=== PATIENT | female | born 1995 | race Caucasian/White ===

== ENCOUNTER → 2017-11-18 15:04 | Outpatient (CLI) | payer MEDICAID, SELFPAY ==
--- NOTE | 2017-11-18 15:14 | XR_ITS ---
XR hand LT min 3V COMPARISON: None HISTORY: Left hand pain TECHNIQUE: AP lateral and oblique views FINDINGS: There is no fracture or dislocation. The soft tissues are normal. IMPRESSION: Negative left hand
--- NOTE | 2017-11-18 15:14 | XR_ITS ---
XR shoulder LT min 2V COMPARISON: None HISTORY: Left shoulder pain TECHNIQUE: 3 views left shoulder FINDINGS: The clavicle is intact and the AC joint appears normal. The humeral head and glenoid are normal and there are no soft tissue calcifications. IMPRESSION: Negative left shoulder
== END ==
PROVIDERS: PCP Nurse Practitioner Family; Visit Provider Nurse Practitioner Family
DX: M25.512 Pain in left shoulder (principal); M79.642 Pain in left hand
CPT/HCPCS: 73030; 73130

== ENCOUNTER → 2020-01-17 13:00 | Outpatient (CLI) | payer OTHER, SELFPAY ==
--- NOTE | 2020-01-17 13:07 | MR_ITS ---
PROCEDURE: MR SHOULDER LT WO CON CLINICAL INDICATION: ROTATOR CUFF SYNDROME Left shoulder pain and tingling COMPARISON: SHOULDCMLT XR shoulder LT min 2V from 11/18/2017 TECHNIQUE: Routine multiplanar multi echo sequences are performed without gadolinium enhancement. FINDINGS: There is mild subacromial stenosis of less than 5 mm. There is no evidence tear of the supraspinatus or infraspinatus tendon the subscapularis and teres minor tendons also appear intact. Bicipital tendon is in place. No significant arthritic changes. The labral have an unremarkable appearance. No bone marrow edema apparent. No shoulder joint effusion or significant degenerative change IMPRESSION: Negative MRI of the left shoulder Dictated by: Hussein Henderson MD 01/19/2020 08:04 Electronically signed by Hussein Henderson MD in [place] 01/19/2020 08:04
== END ==
PROVIDERS: PCP Nurse Practitioner; Visit Provider Nurse Practitioner
DX: M75.102 Unspecified rotator cuff tear or rupture of left shoulder, not specified as traumatic (principal)
CPT/HCPCS: 73221

== ENCOUNTER 2020-04-27 20:37 | Emergency (ER) | payer OTHER, SELFPAY ==
[2020-04-27 20:48] VITALS: BP 137/80; PULSE 94; RESP 17; TEMP 36.6; O2SAT 99; BMI 36.6
--- NOTE | 2020-04-27 20:52 | XR_ITS ---
PROCEDURE: XR ANKLE LT MIN 3V CLINICAL INDICATION: STEPPED IN HOLE Pain COMPARISON: CR ANKL3 ANKLE-LT-3 VIEWS from 05/04/2015 CR ANKL3 ANKLE-LT-3 VIEWS from 06/16/2015 FINDINGS: A small calcific density is present at the anterior aspect of the ankle joint and may be due to an old avulsion fracture. This is not significantly changed. Mild soft tissue swelling noted laterally. There is also some minimal calcification along the mid aspect of the talus anteriorly may be due to old injury. The joint spaces are well-preserved. No significant degenerative/arthritic changes. No erosive changes evident. Other findings:None. IMPRESSION: As above, no acute fracture. Mild soft tissue swelling. Dictated by: Hussein Henderson MD 04/28/2020 05:34 Hussein Henderson MD in [place] 04/28/2020 05:34
--- NOTE | 2020-04-27 20:53 | HMH.EDLOEX ---
ED Disposition Clinical Impression: Ankle sprain and strain Disposition: Home, Self-Care Condition on Discharge: Good Instructions: DI for Ankle Sprain Additional Instructions: ice and use nsaif and call pcp and podiatry for follow up Referrals: Salazar Parks MD [Primary Care Provider] - Violeta Martinez DPM [Staff Physician] - - Critical Care Critical Care Time: No Attestation: On 04/27/20, the high probability of a clinically significant, sudden or life threatening deterioration of the following system(s) required my full and direct attention, intervention and personal management. The time I documented below is in addition to time spent performing reported procedures but includes the following listed in this critical care notation. Medical Decision Making - Medical Records Medical records reviewed: Yes: I reviewed the patient's medical records. - Marquis Inquiry Pt receiving controlled substance: No Vital Signs: 04/27/20 20:48 04/27/20 21:05 Temperature 97.9 F Temperature Source Oral Pulse Rate [Right Brachial] 94 H 97 H Respiratory Rate 17 18 Blood Pressure [Right Arm] 137/80 115/68 Blood Pressure Mean [Right Arm] 99 83 Blood Pressure Source [Right Arm] Automatic Cuff Blood Pressure Position [Right Arm] Sitting 02 Sat by Pulse Oximetry 99 97 Oxygen Delivery Method Room Air Orders (Tests/Meds): ORDERS Category Date Time Status Ankle XR - Left minimum 3 Views [XR ankle LT min 3V] Exams 04/27/20 20:52 Taken Stat - Radiology Data #1 Image(s): Ankle Image Reviewed: Yes I reviewed the patient's radiology image Preliminary Findings: No Fracture Seen Lower Extremity Injury HPI - General Chief Complaint: Extremity Injury, Lower Stated Complaint: AO [id number] fell Hardes injured L ankle Time Seen by Provider: 04/27/20 20:50 Mode of Arrival: Ambulatory Source of Information: Patient, Medical Record Limitations: No Limitations Description of Symptoms (Recalled from ER Triage Doc. by RN): PATIENT REPORTS SHE WAS WALKING TO [employer] AND STEPPED IN A HOLE IN [place] P[place] LOT AND ROLLED HER LEFT ANKLE. - History of Present Illness HPI Narrative: acute injury lt ankle tonight - stepped in hole complaint: ankle injury Onset (ago): hour(s) Injury: Left: ankle Type of Injury: hyperextension Place: street/outdoors Severity: moderate Context: walking Associated symptoms: snap/pop sensation Other symptoms: none - Related Data Allergies Allergy/AdvReac Type Severity Reaction Status Date / Time CEPHALOSPORIN Allergy Intermediate Uncoded 07/19/17 14:08 [facility] History - Hepatitis A Screen Drug use history?: No High risk sexual behaviors?: No History of sexually transmitted infection?: No Currently employed?: No Childcare worker?: No Do you have indoor plumbing?: Yes Do you have electricity?: Yes Attestation statement:: This patient has been screened for Hepatitis A risk factors. I have reviewed the patient's past medical history: Yes ROS Obtained: Yes All systems reviewed & no additional complaints - Constitutional Constitutional: Denies fever(s) - Eyes Eyes: Denies change in vision - ENT Ears, Nose, Mouth, and Throat: Denies sore throat - Cardiovascular Cardiovascular: Denies chest pain - Respiratory Respiratory: No cough - Gastrointestinal Gastrointestingal: Denies: abdominal pain - Genitourinary Male Genitourinary: Denies hematuria - Musculoskeletal Musculoskeletal: Reports as per HPI, Reports joint pain, Reports joint swelling, Reports limited range of motion - Integumentary/Breasts Skin/Breast: Denies rash - Neurologic Neurologic: Denies seizure-like activity Physical Exam - General General appearance: alert, obese - Head Head exam: normocephalic - Eye Eye exam: Present: PERRL, EOMI - ENT ENT exam: Present: mucous membranes moist - Neck Neck exam: Present: trachea midline - Respiratory Respiratory exam: Abs
[2020-04-27 21:05] VITALS: BP 115/68; PULSE 97; RESP 18; O2SAT 97
[2020-04-27 21:50] VITALS: BP 131/71; PULSE 73; RESP 15; TEMP 36.7; O2SAT 98
== END 2020-04-27 21:53 | disposition home or self-care (01) ==
PROVIDERS: Emergency Provider Emergency Medicine; PCP Family Medicine
DX: S93.402A Sprain of unspecified ligament of left ankle, initial encounter (principal); W17.2XXA Fall into hole, initial encounter; Y92.89 Other specified places as the place of occurrence of the external cause
CPT/HCPCS: 73610; 99283

== ENCOUNTER → 2021-08-10 07:54 | Outpatient (CLI) | payer OTHER, SELFPAY ==
--- NOTE | 2021-08-10 07:56 | US_ITS ---
FINAL REPORT CLINICAL HISTORY: RUQ PAIN,HYPERTRIGLYCERIDEMIA FINDINGS: Sonographic images of the right upper quadrant were obtained. The pancreas is partially obscured. The liver is fatty infiltrated. There is a small amount of sludge in the gallbladder. There is no evidence of biliary ductal dilatation.The common duct measures 2 mm. Limited images of the right kidney are unremarkable. IMPRESSION: Fatty liver. There is a small amount of sludge in the gallbladder. Reviewed, Interpreted and Dictated by Red Arellano III, MD Transcribed by Zamzam Velez Authenticated by Red Arellano III, MD on 08/10/2021 10:29:39 AM [facility]
== END ==
PROVIDERS: PCP Family Medicine; Visit Provider Family Medicine
DX: R10.11 Right upper quadrant pain (principal); E78.1 Pure hyperglyceridemia; E66.9 Obesity, unspecified
CPT/HCPCS: 76705

== ENCOUNTER → 2021-08-20 10:26 | Outpatient (CLI) | payer OTHER, SELFPAY ==
--- NOTE | 2021-08-20 10:30 | NM_ITS ---
FINAL REPORT TECHNIQUE: Sequential anterior projection images of the abdomen were obtained after the intravenous injection of 8.01 mCi technetium 99 Choletec. CLINICAL HISTORY: RUQ PAIN 10:40 am 8.01 mci Tc choletec injcted into left antecubital and imaged for 1 hour after injection pt drank ensure and then imaged a hour after drinking pt had no pain after drinking cck FINDINGS: There is normal uptake of the radiotracer by the liver. The gallbladder and bowel are visualized by 60 minutes. After 60 minutes, the patient ingested ensure for calculation of gallbladder ejection fraction. Gallbladder ejection fraction is 50% which is within normal limits. IMPRESSION: No evidence of cystic duct or bile duct obstruction. Normal gallbladder ejection fraction of 50%. Reviewed, Interpreted and Dictated by Red Arellano III, MD Transcribed by Evie Soriano Authenticated by Red Arellano III, MD on 08/20/2021 01:59:50 PM [facility]
== END ==
PROVIDERS: PCP Family Medicine; Visit Provider Family Medicine
DX: R10.11 Right upper quadrant pain (principal)
CPT/HCPCS: 78227; A9537

== ENCOUNTER 2021-09-03 09:16 | Emergency (ER) | payer OTHER, SELFPAY ==
[2021-09-03 10:51] VITALS: BP 124/84; PULSE 81; RESP 18; TEMP 36.8; O2SAT 97; BMI 37.2
--- NOTE | 2021-09-03 11:01 | HMH.EDUTC ---
[facility] [place] Disposition Clinical Impression: COVID-19 Disposition: Home, Self-Care Condition on Discharge: Good Instructions: Contact Dermatitis, DI for Contact Dermatitis, DI for General Allergic Reactions Additional Instructions: Try to avoid contact with the offending substance. Don't start the oral steroids until tomorrow. Follow up with your regular doctor. GO TO THE ER FOR ANY WORSENING SYMPTOMS OR CONCERNS Prescriptions: diphenhydrAMINE HCL [Diphenhydramine HCl] 25 mg PO Q6HP PRN #30 cap PRN Reason: Itching Transmission Status: [facility] methylPREDNISolone [Medrol] 4 mg PO DIRECTED 6 Days #21 packet Transmission Status: [facility] Referrals: Salazar Parks MD [Primary Care Provider] - Time of Disposition: 12:23 Medical Decision Making - Medical Records Medical records reviewed: No: I reviewed the patient's medical records. - Marquis Inquiry Pt receiving controlled substance: No Vital Signs: 09/03/21 10:51 09/03/21 12:34 Temperature 98.2 F 98.2 F Temperature Source Oral Pulse Rate 81 Pulse Rate [Left] 81 Respiratory Rate 18 18 Blood Pressure 124/84 Blood Pressure [Right Arm] 124/84 Blood Pressure Mean [Right Arm] 97 02 Sat by Pulse Oximetry 97 - Lab Data Lab results reviewed: Yes: I reviewed the patient's lab results. Lab Results 09/03/21 11:33: Group A Strep Rapid Negative Orders (Tests/Meds): ED MEDICATIONS Discontinued Medications Generic Name Dose Route Start Last Admin Trade Name Freq PRN Reason Stop Dose Admin Methylprednisolone Sodium Succinate 125 mg 09/03/21 12:07 09/03/21 12:22 Methylprednisolone Sod Succ 125mg Vial IM 09/03/21 12:08 125 mg ONCE ONE Administration ORDERS Category Date Time Status Strep Screen Confirmation Stat Micro 09/03/21 11:33 Received [facility] [place] HPI - General Stated complaint: rash, bilateral ear pain Time Seen by Provider: 09/03/21 11:01 Mode of Arrival: Ambulatory Source of Information: Patient Limitations: No Limitations Description of Symptoms (Recalled from Triage Doc. by RN): pt c/o a rash on her face, ears, and arms x2 days. HEENT Symptoms (Recalled from RN notes): No Resp Symptoms (Recalled from RN notes): No Skin Symptoms (Recalled from RN notes): Yes MS Symptoms (Recalled from RN notes): No Functional Status (Recalled from RN notes): wnl - History of Present Illness Provider Complaint: She states that she has had a rash on her arms, back and neck for the past 2 days. She also has had bilateral ear pressure and she has felt bad. She denies any fever or chills. - Related Data Previous Rx's Medication Instructions Recorded diphenhydrAMINE HCL 25 mg PO Q6HP PRN #30 cap 09/03/21 [Diphenhydramine HCl] methylPREDNISolone [Medrol] 4 mg PO DIRECTED 6 Days #21 09/03/21 packet Allergies Allergy/AdvReac Type Severity Reaction Status Date / Time lemon Allergy Verified 09/03/21 10:56 CEPHALOSPORIN Allergy Intermediate Uncoded 07/19/17 14:08 - Worker's Comp Is this a Worker's Comp case?: No [facility] History - Hepatitis A Screen Drug use history?: No High risk sexual behaviors?: No History of sexually transmitted infection?: No Currently employed?: No Childcare worker?: No Do you have indoor plumbing?: Yes Do you have electricity?: Yes Attestation statement:: This patient has been screened for Hepatitis A risk factors. I have reviewed the patient's past medical history: Yes - Social History Alcohol Intake: never Occupational Status: employed ROS Obtained: Yes All systems reviewed & no additional complaints - Constitutional Constitutional: Denies chills, Denies fever(s) - Eyes Eyes: Denies eye discharge - ENT Ears, Nose, Mouth, and Throat: Denies dizziness, Denies otalgia, Denies sore throat - Cardiovascular Cardiovascular: Denies chest pain - Respiratory Respiratory: Denies chest congestion,
[2021-09-03 12:02] LABS: Strep Scrn Group A (Rapid) Negative (Negative)
[2021-09-03 12:34] VITALS: BP 124/84; PULSE 81; RESP 18; TEMP 36.8
== END 2021-09-03 12:35 | disposition home or self-care (01) ==
PROVIDERS: Emergency Provider Nurse Practitioner Family; PCP Family Medicine
DX: U07.1 COVID-19 (principal)
CPT/HCPCS: 87430; 96372; 99202; C9803; G0463; U0003; U0005

== ENCOUNTER 2021-12-17 15:55 | Emergency (ER) | payer OTHER, SELFPAY ==
--- NOTE | 2021-12-17 16:04 | XR_ITS ---
PROCEDURE INFORMATION: Exam: XR Right Hand Exam date and time: 12/17/2021 4:11 PM Age: 26 years old Clinical indication: Pain; Finger(s); Right; Additional info: Injury to index finger TECHNIQUE: Imaging protocol: XR Right hand. Views: 3 or more views. COMPARISON: No relevant prior studies available. FINDINGS: Bones/joints: Normal. Soft tissues: Normal. IMPRESSION: No acute findings.
[2021-12-17 16:18] VITALS: BP 130/70; PULSE 77; RESP 18; TEMP 36.8; O2SAT 100; BMI 36.0
--- NOTE | 2021-12-17 16:52 | HMH.EDUTC ---
[facility] [place] Clinical Impression: Finger contusion Qualifiers: Encounter type: initial encounter Finger: index finger Damage to nail status: without damage Laterality: right Qualified Code(s): S60.021A - Contusion of right index finger without damage to nail, initial encounter Disposition: Home, Self-Care Condition on Discharge: Good Instructions: DI for Finger Sprain, Contusion Additional Instructions: Ice to area 15 min every couple hours may help with swelling and pain Soaking finger in warm water and epson salt may help with stiffness and pain Return if needed Over the counter Motrin and/or Tylenol may help with pain Referrals: Desire Fuller APRN [Primary Care Provider] - As needed Time of Disposition: 16:57 Medical Decision Making - Marquis Inquiry Pt receiving controlled substance: No Marquis was queried for this patient: No Vital Signs: 12/17/21 16:18 Temperature 98.3 F Temperature Source Oral Pulse Rate [Left] 77 Respiratory Rate 18 Blood Pressure [Right Arm] 130/70 Blood Pressure Mean [Right Arm] 90 02 Sat by Pulse Oximetry 100 - Radiology Data #1 Image(s): Hand Image Reviewed: Yes I have reviewed radiologist's interpretation IMPRESSION: No acute findings. [facility] [place] HPI - General Stated complaint: AO05/12 Right index finger injury Time Seen by Provider: 12/17/21 16:52 Mode of Arrival: Ambulatory Source of Information: Patient Limitations: No Limitations Description of Symptoms (Recalled from Triage Doc. by RN): pt states she hit her R index finger on a wall 1wk ago. pt states it is still hurting. HEENT Symptoms (Recalled from RN notes): No Resp Symptoms (Recalled from RN notes): No Skin Symptoms (Recalled from RN notes): No MS Symptoms (Recalled from RN notes): Yes Functional Status (Recalled from RN notes): wnl - History of Present Illness Provider Complaint: Patient states she accidently hit her hand against the wall in her bathroom about a week ago States that since then she has had pain in her right index finger that is worse when she tries to bend it or move it certain ways States that today she was coming in with a friend and wanted to get it checked out - Related Data Previous Rx's Medication Instructions Recorded diphenhydrAMINE HCL 25 mg PO Q6HP PRN #30 cap 09/03/21 [Diphenhydramine HCl] methylPREDNISolone [Medrol] 4 mg PO DIRECTED 6 Days #21 09/03/21 packet Allergies Allergy/AdvReac Type Severity Reaction Status Date / Time lemon Allergy Verified 09/03/21 10:56 CEPHALOSPORIN Allergy Intermediate Uncoded 07/19/17 14:08 - Worker's Comp Is this a Worker's Comp case?: No [facility] History - Hepatitis A Screen Attestation statement:: This patient has been screened for Hepatitis A risk factors. I have reviewed the patient's past medical history: Yes - Social History Alcohol Intake: never Occupational Status: employed ROS Obtained: Yes All systems reviewed & no additional complaints, Yes Systems reviewed as appropriate & no additional complaints - Constitutional Constitutional: Reports system reviewed and no additional complaints, except as docu, Denies body ache, Denies chills, Denies fever(s) - ENT Ears, Nose, Mouth, and Throat: Reports system reviewed and no additional complaints, except as docu - Cardiovascular Cardiovascular: Reports system reviewed and no additional complaints, except as docu - Respiratory Respiratory: Reports system reviewed and no additional complaints, except as docu - Gastrointestinal Gastrointestingal: Reports: system reviewed and no additional complaints, except as docu - Allergic/Immunologic Comments: Pain in right index finger after hitting it on wall 1 week ago Physical Exam - General General appearance: alert, in no apparent distress - Respiratory Respiratory exam: Present: normal lung sounds bilaterally. Absent: respiratory distress - Cardiovascular Cardiovascular exam: Present: regul
[2021-12-17 17:00] VITALS: BP 130/70; PULSE 77; RESP 18; TEMP 36.8
== END 2021-12-17 17:09 | disposition home or self-care (01) ==
PROVIDERS: Emergency Provider Nurse Practitioner; PCP Nurse Practitioner Family
DX: S60.021A Contusion of right index finger without damage to nail, initial encounter (principal); Z79.52 Long term (current) use of systemic steroids; Z88.1 Allergy status to other antibiotic agents; Z88.3 Allergy status to other anti-infective agents; Z91.018 Allergy to other foods
CPT/HCPCS: 73130; 99213; G0463

== ENCOUNTER 2022-01-03 16:44 | Emergency (ER) | payer OTHER, SELFPAY ==
[2022-01-03 17:00] VITALS: BP 142/83; PULSE 88; RESP 17; TEMP 36.8; O2SAT 95; BMI 37.0
--- NOTE | 2022-01-03 17:16 | HMH.EDUTC ---
[facility] [place] Disposition Clinical Impression: Poison carmen Disposition: Home, Self-Care Condition on Discharge: Good Instructions: Poison Carmen, Poison [place], Poison [place], DI for Poison Carmen Allergy, Methylprednisolone Additional Instructions: Cool compress may help with itching and irritation Over the counter Benadryl may help with itching Oatmeal bathes may help to dry up rash Start oral steriods tomorrow Return if needed Straight to ER if any life threatening symptoms Prescriptions: predniSONE [Prednisone 5mg Tab Dose-Pack] 5 mg PO UD DOSE PK 6 Days #21 tab Transmission Status: Received by [facility] Referrals: Desire Fuller APRN [Primary Care Provider] - As needed Time of Disposition: 17:53 Medical Decision Making - Marquis Inquiry Pt receiving controlled substance: No Marquis was queried for this patient: No Vital Signs: 01/03/22 17:00 Temperature 98.3 F Temperature Source Oral Pulse Rate [Left Radial] 88 Respiratory Rate 17 Blood Pressure [Right Arm] 142/83 H Blood Pressure Mean [Right Arm] 102 02 Sat by Pulse Oximetry 95 Orders (Tests/Meds): ED MEDICATIONS Discontinued Medications Generic Name Dose Route Start Last Admin Trade Name Freq PRN Reason Stop Dose Admin Methylprednisolone Sodium Succinate 125 mg 01/03/22 17:20 01/03/22 17:30 Methylprednisolone Sod Succ 125mg Vial IM 01/03/22 17:21 125 mg ONCE ONE Administration Medical Decision Narrative: Patient denies states that she just got off her period 2 days ago [facility] [place] HPI - General Stated complaint: rash on arms Time Seen by Provider: 01/03/22 17:16 Source of Information: Patient Description of Symptoms (Recalled from Triage Doc. by RN): patient comes in today because of a rash. patient thinks it may be poision carmen or oak. patient states it began last week. HEENT Symptoms (Recalled from RN notes): No Resp Symptoms (Recalled from RN notes): No Skin Symptoms (Recalled from RN notes): Yes MS Symptoms (Recalled from RN notes): No Functional Status (Recalled from RN notes): wnl - History of Present Illness Provider Complaint: Patient states that she noticed rash on both her arms last week and it has continued to spread States that it has moved all over both arms and on her neck States that she is worried that it may be moveing to her face so she came in States that she thinks it may be poison carmen - Related Data Previous Rx's Medication Instructions Recorded diphenhydrAMINE HCL 25 mg PO Q6HP PRN #30 cap 09/03/21 [Diphenhydramine HCl] methylPREDNISolone [Medrol] 4 mg PO DIRECTED 6 Days #21 09/03/21 packet predniSONE [Prednisone 5mg Tab 5 mg PO UD DOSE PK 6 Days #21 tab 01/03/22 Dose-Pack] Allergies Allergy/AdvReac Type Severity Reaction Status Date / Time lemon Allergy Verified 09/03/21 10:56 CEPHALOSPORIN Allergy Intermediate Uncoded 07/19/17 14:08 - Worker's Comp Is this a Worker's Comp case?: No [facility] History - Hepatitis A Screen Attestation statement:: This patient has been screened for Hepatitis A risk factors. I have reviewed the patient's past medical history: Yes - Social History Alcohol Intake: never Occupational Status: employed ROS Obtained: Yes All systems reviewed & no additional complaints, Yes Systems reviewed as appropriate & no additional complaints - Constitutional Constitutional: Reports system reviewed and no additional complaints, except as docu, Denies body ache, Denies chills, Denies fever(s) - ENT Ears, Nose, Mouth, and Throat: Reports system reviewed and no additional complaints, except as docu - Cardiovascular Cardiovascular: Reports system reviewed and no additional complaints, except as docu - Respiratory Respiratory: Reports system reviewed and no additional complaints, except as docu - Gastrointestinal Gastrointestingal: Reports: system reviewed and no additional complaints, except as docu - Integumentary/Breasts Skin/Br
[2022-01-03 17:44] VITALS: BP 142/83; PULSE 88; RESP 17; TEMP 36.8
== END 2022-01-03 17:54 | disposition home or self-care (01) ==
PROVIDERS: Emergency Provider Nurse Practitioner; PCP Nurse Practitioner Family
DX: L23.7 Allergic contact dermatitis due to plants, except food (principal)
CPT/HCPCS: 99212; G0463

== ENCOUNTER → 2022-02-25 09:06 | Outpatient (CLI) | payer OTHER, SELFPAY ==
[2022-02-28 18:08] LABS: QuantiFERON-TB Gold Plus Negative (Negative)
== END ==
PROVIDERS: Visit Provider Nurse Practitioner Family
DX: Z11.1 Encounter for screening for respiratory tuberculosis (principal)
CPT/HCPCS: 36415; 86480

== ENCOUNTER 2022-02-28 18:19 | Emergency (ER) | payer OTHER, SELFPAY ==
[2022-02-28 18:45] VITALS: BP 141/82; PULSE 107; RESP 18; TEMP 37.2; O2SAT 96; BMI 37.3
--- NOTE | 2022-02-28 19:02 | HMH.EDUTC ---
[facility] [place] Disposition Clinical Impression: Otitis media Qualifiers: Otitis media type: suppurative Chronicity: acute Laterality: bilateral Recurrence: non-recurrent Spontaneous tympanic membrane rupture: without spontaneous rupture Qualified Code(s): H66.003 - Acute suppurative otitis media without spontaneous rupture of ear drum, bilateral Sinusitis Qualifiers: Sinusitis location: unspecified location Chronicity: acute Recurrence: non-recurrent Qualified Code(s): J01.90 - Acute sinusitis, unspecified Disposition: Home, Self-Care Condition on Discharge: Good Instructions: Middle Ear Infection, DI for Sinusitis, Preventing the Spread of Coronavirus Discharge Instructions Additional Instructions: Drink plenty of fluids. Take tylenol or ibuprofen for pain or fever. Take the medications as directed. Follow up with your regular doctor. GO TO THE ER FOR ANY WORSENING SYMPTOMS Quarantine until you know the results of your covid-19 test. Notify your school or workplace of your results and follow their instructions regarding return to work/school. Prescriptions: Brompheniramine/Pseudoephed/Dm [Bromfed Dm Cough Syrup] 5 ml PO Q6HP PRN #240 ml PRN Reason: Cough Transmission Status: Received by [facility] Amoxicillin [Amoxicillin 875MG Tab] 875 mg PO Q12H #20 tab Transmission Status: Received by [facility] methylPREDNISolone [Medrol] 4 mg PO DIRECTED 6 Days #21 packet Transmission Status: Received by [facility] Referrals: Desire Fuller APRN [Primary Care Provider] - Forms: Work/School Release Time of Disposition: 19:05 Medical Decision Making - Medical Records Medical records reviewed: No: I reviewed the patient's medical records. - Marquis Inquiry Pt receiving controlled substance: No Vital Signs: 02/28/22 18:45 Temperature 99.0 F Temperature Source Oral Pulse Rate [Left] 107 H Respiratory Rate 18 Blood Pressure [Right Arm] 141/82 H Blood Pressure Mean [Right Arm] 101 02 Sat by Pulse Oximetry 96 Orders (Tests/Meds): ORDERS Category Date Time Status Covid-19 Nasal PCR ([facility]) Routine Lab 02/28/22 19:04 Ordered [facility] [place] HPI - General Stated complaint: fever,cough ears Time Seen by Provider: 02/28/22 19:02 Mode of Arrival: Ambulatory Source of Information: Patient Limitations: No Limitations Description of Symptoms (Recalled from Triage Doc. by RN): patient comes in with complaints of fever, cough, drainage from ear. symptoms began tuesday. HEENT Symptoms (Recalled from RN notes): No Resp Symptoms (Recalled from RN notes): Yes Skin Symptoms (Recalled from RN notes): Yes MS Symptoms (Recalled from RN notes): No Functional Status (Recalled from RN notes): n/a - History of Present Illness Provider Complaint: She states that for the past 1 week she has had bilateral ear pain, sinus congestion, and a sore throat. - Related Data Previous Rx's Medication Instructions Recorded diphenhydrAMINE HCL 25 mg PO Q6HP PRN #30 cap 09/03/21 [Diphenhydramine HCl] methylPREDNISolone [Medrol] 4 mg PO DIRECTED 6 Days #21 09/03/21 packet predniSONE [Prednisone 5mg Tab 5 mg PO UD DOSE PK 6 Days #21 tab 01/03/22 Dose-Pack] Amoxicillin [Amoxicillin 875MG 875 mg PO Q12H #20 tab 02/28/22 Tab] Brompheniramine/Pseudoephed/Dm 5 ml PO Q6HP PRN #240 ml 02/28/22 [Bromfed Dm Cough Syrup] methylPREDNISolone [Medrol] 4 mg PO DIRECTED 6 Days #21 02/28/22 packet Allergies Allergy/AdvReac Type Severity Reaction Status Date / Time lemon Allergy Verified 02/28/22 18:48 CEPHALOSPORIN Allergy Intermediate Uncoded 07/19/17 14:08 - Worker's Comp Is this a Worker's Comp case?: No [facility] History - Hepatitis A Screen Attestation statement:: This patient has been screened for Hepatitis A risk factors. I have reviewed the patient's past medical history: Yes - Social History Alcohol Intake: never Occupational Status
[2022-02-28 19:12] VITALS: BP 141/82; PULSE 107; RESP 18; TEMP 37.2
== END 2022-02-28 19:14 | disposition home or self-care (01) ==
PROVIDERS: Emergency Provider Nurse Practitioner Family; PCP Nurse Practitioner Family
DX: H66.003 Acute suppurative otitis media without spontaneous rupture of ear drum, bilateral (principal); J01.90 Acute sinusitis, unspecified
CPT/HCPCS: 99212; G0463

== ENCOUNTER 2022-06-11 17:44 | Emergency (ER) | payer OTHER, SELFPAY ==
[2022-06-11 19:30] VITALS: BP 136/81; PULSE 90; RESP 19; TEMP 36.7; O2SAT 98; BMI 34.2
[2022-06-11 19:41] LABS: UTC Influenza A Antigen Negative (Negative)
[2022-06-11 19:42] LABS: UTC Influenza B Antigen Negative (Negative)
[2022-06-11 19:51] VITALS: BP 136/81; PULSE 90; RESP 19; TEMP 36.7; O2SAT 98
--- NOTE | 2022-06-11 19:53 | EXP.UTC ---
Discharge Plan Disposition Patient Disposition: Home, Self-Care Condition: Good Prescriptions Prescriptions: New methylprednisolone [Medrol (Yoel)] 4 mg tablets,dose pack See Rx Instructions .Route .COMPLEX 6 Days Qty: 21 0RF Rx Instructions: taper pack; amoxicillin-pot clavulanate 875-125 mg Tablet 1 tab PO Q12H Qty: 20 0RF Referrals Follow up/Referrals: Desire Fuller APRN [Primary Care Provider] - See instructions Activity Restrictions/Add. Instructions Additional Instructions/Restrictions: *Monitor Temp, Over the counter Motrin or Tylenol as directed/as needed Tylenol every 4 hours and Motrin every 6 hours (as long as your family doctor has told you that you can take it) for fever or pain. and straight to ER if unable to lower temp less than 101.0 after medication given *Warm salt water gargles may help to soothe the throat *Throat Lozenges? *Warm fluids like tea with honey may help to soothe the throat? *Sleep elevated *Humidifier/Vaporizer Take medication as prescribed Follow up IMMEDIATELY for new or worsening symptoms or no Noticeable improvement over the next 48-72 hours. 911 for difficulty breathing or swallowing Clinical Impressions Clinical Impression: Otitis media Qualifiers: Otitis media type: unspecified Laterality: right Qualified Code(s): H66.91 - Otitis media, unspecified, right ear Instructions Patient Instructions: Middle Ear Infection, Amoxicillin and Clavulanic Acid Discharge ED Provider: Anne-Marie Sood [facility] General Stated complaint: sore throat ears Mode of Arrival: Ambulatory Source of Information: Patient Limitations: No Limitations Time Seen by Provider: 06/11/22 19:53 Description of Symptoms (Recalled from Triage Doc. by RN): PATIENT C/O BILATERAL EAR PAIN AND DRAINAGE X 3 DAYS HEENT Symptoms (Recalled from RN notes): Yes Resp Symptoms (Recalled from RN notes): No Skin Symptoms (Recalled from RN notes): No MS Symptoms (Recalled from RN notes): No Functional Status (Recalled from RN notes): WNL History of Present Illness Provider Complaint: Patient states that she has been having bilateral ear pain and nasal congestion and drainage that has got worse over the last few days States that she has also been around flu and wanted to get tested for it Related Data Previous Rx's Medication Instructions Recorded amoxicillin 875 mg-potassium 1 tab PO Q12H #20 tabs 06/11/22 clavulanate 125 mg tablet methylprednisolone 4 mg tablets in See Rx Instructions .Route 06/11/22 a dose pack (Medrol (Yoel)) .COMPLEX 6 days #21 tabs Allergies Allergy/AdvReac Type Severity Reaction Status Date / Time Cephalosporins Allergy Verified 06/11/22 19:41 lemon Allergy Verified 02/28/22 18:48 Worker's Comp Is this a Worker's Comp case?: No [facility] Medical History (Updated 06/11/22 @ 19:59 by Anne-Marie Sood APRN) Asthma Surgical History (Updated 06/11/22 @ 19:40 by Pippa Neumann RN) History of tonsillectomy History of tympanostomy tube placement Social History (Updated 06/11/22 @ 19:40 by Pippa Neumann RN) Smoking Status: Unknown if ever smoked alcohol intake: never current occupational status: employed Travel in the last 8 weeks: None ROS Obtained: Yes All systems reviewed & no additional complaints except as documented and Yes Systems reviewed as appropriate & no additional complaints except as documented Constitutional Constitutional: Reports system reviewed and no additional complaints, except as documented and Reports as per HPI ENT Ears, Nose, Mouth, and Throat: Reports system reviewed and no additional complaints, except as documented, Reports as per HPI, Reports otalgia, Reports nasal congestion and Reports nasal discharge Cardiovascular Cardiovascular: Reports system reviewed and no additional complaints, except as documented and Reports as per HPI Respiratory Respiratory: Reports system reviewed and n
== END 2022-06-11 20:02 | disposition home or self-care (01) ==
PROVIDERS: Emergency Provider Nurse Practitioner; PCP Nurse Practitioner Family
DX: H66.91 Otitis media, unspecified, right ear (principal)
CPT/HCPCS: 87804; 99212; G0463

== ENCOUNTER 2022-06-29 17:28 | Emergency (ER) | payer OTHER, SELFPAY ==
[2022-06-29 20:30] VITALS: BP 128/84; PULSE 84; RESP 18; TEMP 36.7; O2SAT 99; BMI 36.3
--- NOTE | 2022-06-29 20:43 | XR_ITS ---
PROCEDURE INFORMATION: Exam: XR Left Ankle Exam date and time: 06/29/2022 8:45 PM Age: 27 years old Clinical indication: Ankle and foot; Left; Patient HX: PT twisted ankle, pain and swelling laterally; Additional info: Fall, pain TECHNIQUE: Imaging protocol: Radiologic exam of the Left ankle. Views: 3 or more views. COMPARISON: CR XR ANKLE LT MIN 3V 04/27/2020 9:13 PM FINDINGS: Bones/joints: Calcaneus enthesophytes. No acute fracture or dislocation. Soft tissues: Soft tissue edema overlies the lateral malleolus. IMPRESSION: No acute fracture or dislocation.
--- NOTE | 2022-06-29 20:43 | XR_ITS ---
PROCEDURE INFORMATION: Exam: XR Left Foot Exam date and time: 06/29/2022 8:44 PM Age: 27 years old Clinical indication: Ankle and foot; Left; Patient HX: PT twisted ankle, pain and swelling laterally; Additional info: Fall, pain TECHNIQUE: Imaging protocol: Radiologic exam of the Left foot. Views: 3 or more views. COMPARISON: CR XR ANKLE LT MIN 3V 04/27/2020 9:13 PM FINDINGS: Bones/joints: No acute fracture or dislocation. Soft tissues: Normal. IMPRESSION: No acute fracture or dislocation.
--- NOTE | 2022-06-29 21:27 | HMH.EDLOEX ---
Discharge Plan Disposition Patient Disposition: Home, Self-Care Prescriptions Prescriptions: No Action methylprednisolone [Medrol (Yoel)] 4 mg tablets,dose pack See Rx Instructions .Route .COMPLEX 6 Days Qty: 21 0RF Rx Instructions: taper pack; amoxicillin-pot clavulanate 875-125 mg Tablet 1 tab PO Q12H Qty: 20 0RF Referrals Follow up/Referrals: Nadir Stafford JR, MD [Physician] - See instructions Desire Fuller APRN [Primary Care Provider] - See instructions Violeta Martinez DPM [Staff Physician] - See instructions Clinical Impressions Clinical Impression: Ankle sprain and strain Instructions Patient Instructions: Sprain Discharge ED Provider: Misael Bloom Lower Extremity Injury HPI General Chief Complaint: Extremity Injury, Lower Stated Complaint: AO 06/29/22 1450 Injury left ankle Time Seen by Provider: 06/29/22 21:27 Mode of Arrival: Family Vehicle Source of Information: Patient and Medical Record Limitations: No Limitations Description of Symptoms (Recalled from ER Triage Doc. by RN): Pt c/o pain to L ankle. States she was walking when her ankle gave-way and rolled then I heard a pop . States this occured at also 1450 otday. Now, the pain has worsen and swelling increased. Pt has iced it, no meds HOME HEALTH CARE PROVIDER. History of Present Illness HPI Narrative: acute eversion injury to lt ankle with pain /swelling and pain and dec wt bearing complaint: ankle injury and foot injury Onset (ago): hour(s) Injury: Left: ankle and foot Type of Injury: eversion Place: home Severity: moderate Exacerbating factors: weight bearing, movement and palpation Context: walking Associated symptoms: snap/pop sensation, swelling and able to partially bear weight Other symptoms: none Treatments prior to arrival: cold therapy Related Data Previous Rx's Medication Instructions Recorded amoxicillin 875 mg-potassium 1 tab PO Q12H #20 tabs 06/11/22 clavulanate 125 mg tablet methylprednisolone 4 mg tablets in See Rx Instructions .Route 06/11/22 a dose pack (Medrol (Yoel)) .COMPLEX 6 days #21 tabs Allergies Allergy/AdvReac Type Severity Reaction Status Date / Time Cephalosporins Allergy Verified 06/11/22 19:41 lemon Allergy Verified 02/28/22 18:48 [facility] Medical History (Updated 06/29/22 @ 21:39 by Misael Bloom MD) Asthma Surgical History (Updated 06/11/22 @ 19:40 by Pippa Neumann, RN) History of tonsillectomy History of tympanostomy tube placement Social History (Updated 06/11/22 @ 19:40 by Pippa Neumann, RN) Smoking Status: Never smoker alcohol intake: never current occupational status: employed Travel in the last 8 weeks: None ROS Obtained: Yes All systems reviewed & no additional complaints except as documented Physical Exam General General appearance: alert Head Head exam: normocephalic Eye Eye exam: Present PERRL and EOMI ENT ENT exam: Present mucous membranes moist Neck Neck exam: Absent trachea midline Respiratory Respiratory exam: Present normal lung sounds bilaterally Cardiovascular Cardiovascular exam: Present regular rate Expanded Lower Extremity Exam Left: Lower leg exam: Present normal inspection and Achilles tendon intact Ankle exam: Present tenderness and swelling; Absent full ROM Foot/toe exam: Absent tenderness, swelling or tenderness at base of 5th metatarsal Neurological Exam Neurological exam: Present alert, oriented X3 and CN II-XII intact Psychiatric Psychiatric exam: Present normal affect Skin Skin exam: Absent rash Medical Decision Making Medical Records Medical records reviewed: Yes I reviewed the patient's medical records. Marquis Inquiry Pt receiving controlled substance: No Vital Signs: 06/29/22 20:30 Temperature 98.1 F Temperature Source Oral Pulse Rate [Right] 84 Respiratory Rate 18 Blood Pressure [Right Arm] 128/84 Blood Pressure Mean [Right Arm] 98 Blood Pressure Source [Right Arm] Autom
[2022-06-29 21:48] VITALS: BP 120/78; PULSE 80; RESP 16; TEMP 36.8; O2SAT 98
== END 2022-06-29 21:49 | disposition home or self-care (01) ==
PROVIDERS: Emergency Provider Emergency Medicine; PCP Nurse Practitioner Family
DX: S93.402A Sprain of unspecified ligament of left ankle, initial encounter (principal); J45.909 Unspecified asthma, uncomplicated; Z79.52 Long term (current) use of systemic steroids
CPT/HCPCS: 73610; 73630; 99283

== ENCOUNTER 2022-07-12 17:05 | Emergency (ER) | payer OTHER, SELFPAY ==
--- NOTE | 2022-07-12 18:50 | EXP.UTC ---
Discharge Plan Disposition Patient Disposition: Home, Self-Care Condition: Good Prescriptions Prescriptions: New amoxicillin [amoxicillin] 500 mg tablet 500 mg PO TID 10 Days Qty: 30 0RF methylprednisolone 4 mg Tablets,Dose Pack 4 mg PO DIRECTED Qty: 21 0RF [id number] [Bromfed DM] 2-30-10 mg/5 mL Syrup 5 ml PO Q6H PRN (Reason: Cough) Qty: 240 0RF No Action methylprednisolone [Medrol (Yoel)] 4 mg tablets,dose pack See Rx Instructions .Route .COMPLEX 6 Days Qty: 21 0RF Rx Instructions: taper pack; amoxicillin-pot clavulanate 875-125 mg Tablet 1 tab PO Q12H Qty: 20 0RF Referrals Follow up/Referrals: Desire Fuller APRN [Primary Care Provider] - See instructions Activity Restrictions/Add. Instructions Additional Instructions/Restrictions: Drink plenty of fluids. Take tylenol or ibuprofen for pain or fever. Take the medications as directed. Follow up with your regular doctor. GO TO THE ER FOR ANY WORSENING SYMPTOMS Clinical Impressions Clinical Impression: Otitis media Instructions Patient Instructions: Middle Ear Infection Discharge ED Provider: Rjaiv Li [facility] General Stated complaint: LEFT EAR ACHE Time Seen by Provider: 07/12/22 18:50 History of Present Illness Provider Complaint: She states that for the past 5 days she has had sore throat and ear pain. Related Data Previous Rx's Medication Instructions Recorded amoxicillin 875 mg-potassium 1 tab PO Q12H #20 tabs 06/11/22 clavulanate 125 mg tablet methylprednisolone 4 mg tablets in See Rx Instructions .Route 06/11/22 a dose pack (Medrol (Yoel)) .COMPLEX 6 days #21 tabs amoxicillin 500 mg tablet 500 mg PO TID 10 days #30 tabs 07/12/22 [id number] 5 ml PO Q6H PRN Cough #240 mL 07/12/22 2 mg-30 mg-10 mg/5 mL oral syrup (Bromfed DM) methylprednisolone 4 mg tablets in 4 mg PO DIRECTED #21 tabs 07/12/22 a dose pack Allergies Allergy/AdvReac Type Severity Reaction Status Date / Time Cephalosporins Allergy Verified 07/12/22 19:00 lemon Allergy Verified 07/12/22 19:00 PFSH PFSH Disclaimer: The information contained in this section may have been updated after the patient was seen, as this information can be updated by other users. Medical History Asthma Surgical History History of tonsillectomy History of tympanostomy tube placement Social History Smoking Status: Never smoker alcohol intake: never current occupational status: employed Travel in the last 8 weeks: None ROS Obtained: Yes All systems reviewed & no additional complaints except as documented Constitutional Constitutional: Reports chills and Reports fever(s) Eyes Eyes: Denies eye discharge ENT Ears, Nose, Mouth, and Throat: Reports as per HPI Cardiovascular Cardiovascular: Denies chest pain Respiratory Respiratory: Denies chest congestion and Reports cough Gastrointestinal Gastrointestingal: Reports nausea; Denies abdominal pain, constipation, cramping, diarrhea or vomiting Musculoskeletal Musculoskeletal: Denies arthralgias Integumentary/Breasts Skin/Breast: Denies rash Neurologic Neurologic: Denies paresthesias Physical Exam General General appearance: alert and in no apparent distress Head Head exam: atraumatic, normocephalic and normal inspection Eye Eye exam: Present normal appearance; Absent PERRL or EOMI ENT ENT exam: Present mucous membranes moist and normal external ear exam Expanded ENT Exam TM/Canal exam: Bilateral TM: erythema, bulging and effusion Nose exam: Absent sinus tenderness Nasal speculum exam: Bilateral: normal Mouth exam: Present normal external inspection and other; Absent drooling Teeth exam: Present normal inspection Throat exam: Present tonsillar erythema and tonsill
[2022-07-12 18:58] VITALS: BP 116/78; PULSE 78; RESP 16; TEMP 36.7; O2SAT 100; BMI 36.3
[2022-07-12 19:39] VITALS: BP 116/78; PULSE 78; RESP 16; TEMP 36.7
== END 2022-07-12 19:45 | disposition home or self-care (01) ==
PROVIDERS: Emergency Provider Nurse Practitioner Family; PCP Nurse Practitioner Family
DX: H66.93 Otitis media, unspecified, bilateral (principal)
CPT/HCPCS: 99212; G0463

== ENCOUNTER 2022-08-31 17:08 | Emergency (ER) | payer OTHER, SELFPAY ==
[2022-08-31 17:20] VITALS: BP 129/90; PULSE 100; RESP 22; TEMP 36.7; O2SAT 96; BMI 36.1
[2022-08-31 17:31] VITALS: BP 129/90; PULSE 100; RESP 22; TEMP 36.7; O2SAT 96
--- NOTE | 2022-08-31 17:33 | EXP.UTC ---
Discharge Plan Disposition Patient Disposition: Home, Self-Care Condition: Good Prescriptions Prescriptions: New pseudoephedrine HCl [12 Hour Decongestant] 120 mg tablet extended release 120 mg PO Q12H PRN (Reason: nasal congestion) Qty: 20 0RF clarithromycin 500 mg tablet 500 mg PO Q12H 10 Days Qty: 20 0RF Referrals Follow up/Referrals: Desire Fuller APRN [Primary Care Provider] - See instructions Larry Tejada MD [Physician] - See instructions Nadir Duncan MD [Physician] - See instructions Christian Rashid III, MD [Staff Physician] - See instructions Activity Restrictions/Add. Instructions Additional Instructions/Restrictions: *Monitor Temp, Over the counter Motrin or Tylenol as directed/as needed Tylenol every 4 hours and Motrin every 6 hours (as long as your family doctor has told you that you can take it) for fever or pain. and straight to ER if unable to lower temp less than 101.0 after medication given *Warm salt water gargles may help to soothe the throat *Throat Lozenges? *Warm fluids like tea with honey may help to soothe the throat? *Sleep elevated *Humidifier/Vaporizer Your throat swab was sent for culture. Those results are typically sent to your primary care. Be sure to follow up in 2-3 days with your family doctor/primary care physician if no improvement so they can review those result and treat if necessary. If you don?t have a primary care doctor, I recommend you get one but in the mean time, you will have to return to a walk in clinic Follow up IMMEDIATELY for new or worsening symptoms or no Noticeable improvement over the next 48-72 hours. 911 for difficulty breathing or swallowing Clinical Impressions Clinical Impression: Otitis media, Strep throat Instructions Patient Instructions: Middle Ear Infection, DI for Strep Throat, Strep Throat Discharge ED Provider: Anne-Marie Sood [facility] HPI General Stated complaint: earache , runny nose Mode of Arrival: Ambulatory Source of Information: Patient Limitations: No Limitations Time Seen by Provider: 08/31/22 17:34 Description of Symptoms (Recalled from Triage Doc. by RN): PATIENT C/O BILATERAL EAR PAIN AND SINUS PRESSURE X 1 WEEK HEENT Symptoms (Recalled from RN notes): Yes Resp Symptoms (Recalled from RN notes): No Skin Symptoms (Recalled from RN notes): No MS Symptoms (Recalled from RN notes): No Functional Status (Recalled from RN notes): WNL History of Present Illness Provider Complaint: Patient states that she has been having sinus pain and pressure and bilateral ear pain for over a week State that she has had several ear infections over the last couple months States that her most recent was about 3-4 wks ago and now she is having the same symptoms again Related Data Previous Rx's Medication Instructions Recorded clarithromycin 500 mg tablet 500 mg PO Q12H 10 days #20 tabs 08/31/22 pseudoephedrine HCl 120 mg 120 mg PO Q12H PRN nasal 08/31/22 tablet,extended release (12 Hour congestion #20 tabs Decongestant ER) Allergies Allergy/AdvReac Type Severity Reaction Status Date / Time Cephalosporins Allergy Verified 07/12/22 19:00 lemon Allergy Verified 07/12/22 19:00 Worker's Comp Is this a Worker's Comp case?: No [facility] Disclaimer: The information contained in this section may have been updated after the patient was seen, as this information can be updated by other users. Medical History Asthma Surgical History History of tonsillectomy History of tympanostomy tube placement Social History (Updated 08/31/22 @ 17:30 by Pippa Neumann RN) Smoking Status: Never smoker alcohol intake: never current occupational status: employed Travel in the last 8 weeks: None ROS Obtained: Yes All systems reviewed & no additional complaints except as documented and Yes Systems r
[2022-08-31 17:42] LABS: UTC Influenza A Antigen Negative (Negative); UTC Influenza B Antigen Negative (Negative); UTC Strep Screen (Rapid) Positive (Negative)
== END 2022-08-31 17:54 | disposition home or self-care (01) ==
PROVIDERS: Emergency Provider Nurse Practitioner; PCP Nurse Practitioner Family
DX: J02.0 Streptococcal pharyngitis (principal); H66.90 Otitis media, unspecified, unspecified ear
CPT/HCPCS: 87804; 87880; 99212; 99213; G0463

== ENCOUNTER 2022-09-11 00:49 | Emergency (ER) | payer OTHER, SELFPAY ==
[2022-09-11 01:01] VITALS: BP 173/103; PULSE 86; RESP 16; TEMP 36.6; O2SAT 96; BMI 35.2
[2022-09-11 01:07] VITALS: PULSE 93; O2SAT 96
[2022-09-11 01:08] VITALS: BP 173/103; PULSE 80; O2SAT 97
--- NOTE | 2022-09-11 01:10 | HMH.EDGENADL ---
Discharge Plan Disposition Patient Disposition: Home, Self-Care Condition: Fair Prescriptions Prescriptions: New ketorolac 10 mg tablet 10 mg PO Q8H 5 Days Qty: 15 0RF tamsulosin [Flomax] 0.4 mg capsule 0.4 mg PO Q24H Qty: 14 0RF No Action pseudoephedrine HCl [12 Hour Decongestant] 120 mg tablet extended release 120 mg PO Q12H PRN (Reason: nasal congestion) Qty: 20 0RF clarithromycin 500 mg tablet 500 mg PO Q12H 10 Days Qty: 20 0RF Referrals Follow up/Referrals: Desire Fuller APRN [Primary Care Provider] - See instructions Clinical Impressions Clinical Impression: Left nephrolithiasis Instructions Patient Instructions: DI for Kidney Stones Discharge ED Provider: Dakota Mccarthy General Adult HPI General Chief complaint: Back Pain/Injury Stated complaint: Left side lower back pain,vomoting,unable to void Time Seen by Provider: 09/11/22 01:00 Mode of Arrival: Ambulatory Source of Information: Patient Limitations: No Limitations Description of Symptoms (Recalled from ER Triage Doc. by RN): Pt states that she woke up tonight at 2300 with left sided lower back pain that radiates into her left hip area. 2 episodes of vomiting. Patient states that she has also been unable to urinate since 2300. Pt denies any injury. Denies burning with urination. Does report a history of polycystic ovarian disease. History of Present Illness HPI narrative: Patient is a 27-year-old female with no pertinent past medical history who presents with back and left hip pain. She states that around 11:00 last night she got a cute onset of this pain. She states that it seems to come from her low back and radiate around into her groin. She says that this happened almost instantly and has been constant since. She describes the pain as a stabbing. She has not been able to urinate since. Denies any injuries. She states that she also feels very nauseous. She has not vomited. Related Data Previous Rx's Medication Instructions Recorded clarithromycin 500 mg tablet 500 mg PO Q12H 10 days #20 tabs 08/31/22 pseudoephedrine HCl 120 mg 120 mg PO Q12H PRN nasal 08/31/22 tablet,extended release (12 Hour congestion #20 tabs Decongestant ER) ketorolac 10 mg tablet 10 mg PO Q8H 5 days #15 tabs 09/11/22 tamsulosin 0.4 mg capsule (Flomax) 0.4 mg PO Q24H #14 caps 09/11/22 Allergies Allergy/AdvReac Type Severity Reaction Status Date / Time Cephalosporins Allergy Verified 07/12/22 19:00 lemon Allergy Verified 07/12/22 19[facility]00 [facility] Disclaimer: The information contained in this section may have been updated after the patient was seen, as this information can be updated by other users. Medical History Asthma Surgical History History of tonsillectomy History of tympanostomy tube placement Social History (Updated 08/31/22 @ 17:30 by Pippa Neumann RN) Smoking Status: Never smoker alcohol intake: never current occupational status: employed Travel in the last 8 weeks: None ROS Obtained: Yes All systems reviewed & no additional complaints except as documented Physical Exam General General appearance: alert and in no apparent distress Head Head exam: atraumatic, normocephalic and normal inspection Eye Eye exam: Present normal appearance, PERRL and EOMI ENT ENT exam: Present normal exam, normal oropharynx, mucous membranes moist and normal external ear exam Neck Neck exam: Present normal inspection, full ROM and trachea midline; Absent meningismus or lymphadenopathy Chest Chest inspection: Present normal inspection and symmetric chest wall rise; Absent tenderness Respiratory Respiratory exam: Present normal lung sounds bilaterally; Absent respiratory distress Cardiovascular Cardiovascular exam: Present regular rate and normal rhythm Abdominal Exam Abdominal exam: Present soft; Absent di
--- NOTE | 2022-09-11 01:14 | CT_ITS ---
PROCEDURE INFORMATION: Exam: CT Abdomen And Pelvis Without Contrast Exam date and time: 09/11/2022 2:04 AM Age: 27 years old Clinical indication: Abdominal pain; Flank; Left; Additional info: Concern for nephrolitiasis TECHNIQUE: Imaging protocol: Computed tomography of the abdomen and pelvis without contrast. Radiation optimization: All CT scans at this facility use at least one of these dose optimization techniques: automated exposure control; mA and/or kV adjustment per patient size (includes targeted exams where dose is matched to clinical indication); or iterative reconstruction. Other protocol: This patient has received 0 known CTs and 0 known cardiac nuclear medicine studies in the 12 months prior to the current study. COMPARISON: [facility]PAT[facility] 08/20/2021 11:50 AM FINDINGS: Liver: Normal. No mass. Gallbladder and bile ducts: Normal. No calcified stones. No ductal dilation. Pancreas: Normal. No ductal dilation. Spleen: Normal. No splenomegaly. Adrenal glands: Normal. No mass. Kidneys and ureters: On axial image 97, there is a 2 mm stone at the left ureterovesical junction. On the same image there is a 1 mm punctate density in the area of the right ureterovesical junction. There is mild left hydroureteronephrosis and perinephric edema as well as mildly edematous appearance of the left kidney. Stomach and bowel: Unremarkable. No obstruction. No mucosal thickening. Appendix: No evidence of appendicitis. Intraperitoneal space: Unremarkable. No free air. No significant fluid collection. Vasculature: Unremarkable. No abdominal aortic aneurysm. Lymph nodes: Unremarkable. No enlarged lymph nodes. Urinary bladder: Unremarkable as visualized. Reproductive: Unremarkable as visualized. Bones/joints: Unremarkable. No acute fracture. Soft tissues: Unremarkable. IMPRESSION: 1. 2 mm stone at the left UVJ producing mild left hydronephrosis and renal/perirenal edema 2. Questionable 1 mm stone at the right UVJ with no hydronephrosis or perinephric edema on the right
[2022-09-11 01:26] LABS: Basophils # 0.1 K/mm3 (0-0.2); Basophils % 0.8 % (0.1-2.0); Eosinophils # 0.2 K/mm3 (0.0-0.4); Eosinophils % 1.6 % (0.1-12.0); Hematocrit 42.2 % (37.0-47.0); Hemoglobin 13.7 g/dL (12.2-16.2); Lymphocytes # 3.2 K/mm3 (0.7-4.5); Lymphocytes % 25.8 % (10-50); Mean Corpuscular HGB Conc 32.4 g/dL (31.8-35.4); Mean Corpuscular Hemoglobin 26.3 pg (27.0-31.2); Mean Corpuscular Volume 81.3 fl (81-99); Mean Platelet Volume 7.6 fl (7.4-10.4); Monocytes # 0.4 K/mm3 (0.1-1.0); Neutrophils # 8.5 K/mm3 (1.8-7.8); Neutrophils % 68.9 % (37.0-80.0); Platelet Count 453 K/mm3 (142-424); Red Cell Distribution Width 15.6 % (11.5-17.5); White Blood Count 12.3 K/mm3 (4.8-10.8)
[2022-09-11 01:30] VITALS: BP 145/80; PULSE 80; O2SAT 96
[2022-09-11 01:30] LABS: Microscopic, Urine URINE MICROSCOPIC (MICROSCOPIC)
[2022-09-11 01:37] LABS: Alanine Aminotransferase 42 U/L (12-78); Albumin Level 4.8 g/dl (3.5-5.0); Albumin/Globulin Ratio 1.5 (1.1-1.8); Alkaline Phosphatase 111 U/L (38-126); Anion Gap 11.6 mEq/L (5-15); Aspartate Amino Transferase 42 U/L (14-36); Blood Urea Nitrogen 16 mg/dl (7-17); Carbon Dioxide 26 mmol/L (22.0-30.0); Chloride 107 mmol/L (98-107); Creatinine Clearance Estimated 123 mL/min (50-200); Estimated Glomerular Filt Rate 68 ml/min (>60); GFR (African American) 82 ML/MIN (>60); Globulin 3.3 g/dL (1.3-3.2); Glucose 146 mg/dl (74-100); Lipase 106 U/L (23-300); Potassium 3.6 mmoL/L (3.5-5.1); Sodium 141 mmol/L (136-145); Total Protein,Serum 8.1 g/dl (6.3-8.2)
[2022-09-11 01:39] LABS: Appearance,Urine SL CLOUDY (Clear); Bilirubin,Urine Negative (Negative); Blood, Urine 1+ (Negative); Color,Urine YELLOW (Yellow); Glucose,Urine (UA) Negative (Negative); Ketones,Urine Negative (Negative); Leukocyte Esterase,Urine Negative (Negative); Nitrate,Urine Negative (Negative); PH,Urine 5.5 (5.0-8.5); Protein,Urine TRACE (Negative); Specific Gravity, Urine >= 1.030 (1.005-1.030); Urobilinogen,Urine 0.2 EU/dl (0.2)
[2022-09-11 01:52] LABS: HCG Qualitative, Serum Negative (Negative)
[2022-09-11 01:57] LABS: RBC,Urine Occasional #/hpf (0-3); Squamous Epithelial Cell,Urine Occasional #/hpf (0-5)
[2022-09-11 01:58] LABS: Bilirubin,Total 0.3 mg/dl (0.2-1.3)
[2022-09-11 02:28] VITALS: BP 145/80; PULSE 80; RESP 18; TEMP 36.6; O2SAT 99
--- NOTE | 2022-09-11 13:33 | PC.NURSE ---
per pts request prescriptions sent to [facility] in [place]
== END 2022-09-11 02:52 | disposition home or self-care (01) ==
PROVIDERS: Emergency Provider Student in an Organized Health Care Education/Training Program; PCP Nurse Practitioner Family
DX: N20.0 Calculus of kidney (principal); J45.909 Unspecified asthma, uncomplicated; Z90.49 Acquired absence of other specified parts of digestive tract
CPT/HCPCS: 74176; 80053; 81001; 83690; 84703; 85025; 96361; 96374; 96375; 99285; J2405

== ENCOUNTER 2022-10-18 17:10 | Emergency (ER) | payer OTHER, SELFPAY ==
[2022-10-18 19:00] VITALS: BP 140/96; PULSE 123; RESP 20; TEMP 37.3; O2SAT 100; BMI 35.7
--- NOTE | 2022-10-18 19:18 | EXP.UTC ---
Discharge Plan Disposition Patient Disposition: Home, Self-Care Condition: Good Prescriptions Prescriptions: New amoxicillin 875 mg tablet 875 mg PO BID 10 Days Qty: 20 0RF Referrals Follow up/Referrals: Desire Fuller APRN [Primary Care Provider] - See instructions Activity Restrictions/Add. Instructions Additional Instructions/Restrictions: *Monitor Temp, Over the counter Motrin or Tylenol as directed/as needed Tylenol every 4 hours and Motrin every 6 hours (as long as your family doctor has told you that you can take it) for fever or pain. and straight to ER if unable to lower temp less than 101.0 after medication given *Warm salt water gargles may help to soothe the throat *Throat Lozenges? *Warm fluids like tea with honey may help to soothe the throat? *Sleep elevated *Humidifier/Vaporizer *If you did not take Penicillin shot or was unable to, start taking antibiotic immediately and make sure that you take it for the FULL length of time although you should start to feel better in 24-48 hours *change toothbrush and toothpaste 24-48 hours after starting to take antibiotics so you do not reinfect yourself Monitor Temp. Tylenol and/or Ibuprofen as needed. ER if fever is no less than 101 despite alternating Tylenol and Ibuprofen * Encourage fluids, water, Gatorade, powerade, pedialyte if infant/toddler/or child *Cold fluids, popsicles and ice cream may feel good on his throat Follow up IMMEDIATELY for new or worsening symptoms or no Noticeable improvement over the next 48-72 hours. 911 for difficulty breathing or swallowing Clinical Impressions Clinical Impression: Strep throat, Otitis media Instructions Patient Instructions: DI for Strep Throat, Strep Throat, Middle Ear Infection Discharge ED Provider: Anne-Marie Sood [facility] General Stated complaint: Earache,sore throat, just dont feel well Mode of Arrival: Ambulatory Source of Information: Patient Limitations: No Limitations Time Seen by Provider: 10/18/22 19:18 Description of Symptoms (Recalled from Triage Doc. 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 Medical History Asthma Surgical History History of tonsillectomy History of tympanostomy tube placement Social History Smoking Status: Never smoker alcohol intake: never current occupational status: employed Travel in the last 8 weeks: None ROS Obtained: Yes All systems reviewed & no additional complaints except as documented and Yes Systems reviewed as appropriate & no additional complaints except as documented Constitutional Constitutional: Reports system reviewed and no additional complaints, except as documented, Reports as per HPI, Reports fever(s) and Reports headache(s) ENT Ears, Nose, Mouth, and Throat: Reports system reviewed and no additional compla
[2022-10-18 19:23] LABS: UTC Strep Screen (Rapid) Positive (Negative)
[2022-10-18 19:52] VITALS: BP 140/96; PULSE 123; RESP 20; TEMP 37.3; O2SAT 100
== END 2022-10-18 19:52 | disposition home or self-care (01) ==
PROVIDERS: Emergency Provider Nurse Practitioner; PCP Nurse Practitioner Family
DX: H66.91 Otitis media, unspecified, right ear (principal); J02.0 Streptococcal pharyngitis
CPT/HCPCS: 87880; 99212; 99214; G0463

== ENCOUNTER 2023-01-21 17:16 | Emergency (ER) | payer OTHER, SELFPAY ==
[2023-01-21 17:25] VITALS: BP 135/89; PULSE 86; RESP 18; TEMP 36.9; O2SAT 98; BMI 34.0
[2023-01-21 17:41] LABS: UTC Strep Screen (Rapid) Negative (Negative)
--- NOTE | 2023-01-21 17:52 | EXP.UTC ---
Discharge Plan Disposition Patient Disposition: Home, Self-Care Condition: Good Prescriptions Prescriptions: New benzonatate 100 mg capsule 100 mg PO TID PRN (Reason: cough) Qty: 30 0RF methylprednisolone [Medrol (Yoel)] 4 mg tablets,dose pack See Rx Instructions .Route .COMPLEX 6 Days Qty: 21 0RF Rx Instructions: taper pack; amoxicillin-pot clavulanate 875-125 mg Tablet 1 tab PO Q12H Qty: 20 0RF Referrals Follow up/Referrals: Desire Fuller APRN [Primary Care Provider] - See instructions Activity Restrictions/Add. Instructions Additional Instructions/Restrictions: *Monitor Temp, Over the counter Motrin or Tylenol as directed/as needed Tylenol every 4 hours and Motrin every 6 hours (as long as your family doctor has told you that you can take it) for fever or pain. and straight to ER if unable to lower temp less than 101.0 after medication given *Warm salt water gargles may help to soothe the throat *Throat Lozenges? *Warm fluids like tea with honey may help to soothe the throat? *Sleep elevated *Humidifier/Vaporizer *Take medication as prescribed Your throat swab was sent for culture. Those results are typically sent to your primary care. Be sure to follow up in 2-3 days with your family doctor/primary care physician if no improvement so they can review those result and treat if necessary. If you don?t have a primary care doctor, I recommend you get one but in the mean time, you will have to return to a walk in clinic Follow up IMMEDIATELY for new or worsening symptoms or no Noticeable improvement over the next 48-72 hours. 911 for difficulty breathing or swallowing Clinical Impressions Clinical Impression: Otitis media, Sinusitis Instructions Patient Instructions: DI for Sinusitis, Sinusitis, Middle Ear Infection Discharge ED Provider: Anne-Marie Sood [facility] [place] General Stated complaint: ear pain, crissy Mode of Arrival: Ambulatory Source of Information: Patient Limitations: No Limitations Time Seen by Provider: 01/21/23 17:52 Description of Symptoms (Recalled from Triage Doc. by RN): PATIENT C/O CHEST CONGESTION, COUGH, AND BILATERAL EAR PAIN X 2 DAYS HEENT Symptoms (Recalled from RN notes): Yes Resp Symptoms (Recalled from RN notes): Yes Skin Symptoms (Recalled from RN notes): No MS Symptoms (Recalled from RN notes): No Functional Status (Recalled from RN notes): WNL History of Present Illness Provider Complaint: Patient states that she has been having sinus pain and pressure, pain in her ears, cough and chest congestion States that today she wasnt feeling any better and felt like she was a little wheezy so she came in before it got worse Related Data Previous Rx's Medication Instructions Recorded amoxicillin 875 mg-potassium 1 tab PO Q12H #20 tabs 01/21/23 clavulanate 125 mg tablet benzonatate 100 mg capsule 100 mg PO TID PRN cough #30 caps 01/21/23 methylprednisolone 4 mg tablets in See Rx Instructions .Route 01/21/23 a dose pack (Medrol (Yoel)) .COMPLEX 6 days #21 tabs Allergies Allergy/AdvReac Type Severity Reaction Status Date / Time Cephalosporins Allergy Verified 10/18/22 19:11 lemon Allergy Verified 10/18/22 19:11 Worker's Comp Is this a Worker's Comp case?: No [facility] Disclaimer: The information contained in this section may have been updated after the patient was seen, as this information can be updated by other users. Medical History (Updated 01/21/23 @ 18:06 by Anne-Marie Sood APRN) Asthma Kidney stone Surgical History (Updated 01/21/23 @ 17:31 by Pippa Neumann RN) History of removal of cyst History of tonsillectomy History of tympanostomy tube placement Social History Smoking Status: Never smoker alcohol intake: never current occupational status: employed Travel in the last 8 weeks: None ROS Obtained: Yes All systems reviewed & no additional com
[2023-01-21 18:16] VITALS: BP 135/89; PULSE 86; RESP 18; TEMP 36.9; O2SAT 98
== END 2023-01-21 18:18 | disposition home or self-care (01) ==
PROVIDERS: Emergency Provider Nurse Practitioner; PCP Nurse Practitioner Family
DX: H66.93 Otitis media, unspecified, bilateral (principal); J01.90 Acute sinusitis, unspecified; J45.909 Unspecified asthma, uncomplicated
CPT/HCPCS: 87880; 99212; 99214; G0463

== ENCOUNTER 2023-04-06 17:10 | Emergency (ER) | payer OTHER, SELFPAY ==
--- NOTE | 2023-04-06 17:19 | XR_ITS ---
PROCEDURE INFORMATION: Exam: XR Right Foot Exam date and time: 04/06/2023 5:20 PM Age: 28 years old Clinical indication: Pain; Foot; Left; Additional info: Pain in heel from fall TECHNIQUE: Imaging protocol: Radiologic exam of the right foot. Views: 3 or more views. COMPARISON: CR XR ANKLE RT MIN 3V 04/06/2023 5:18 PM FINDINGS: Bones/joints: Osseous structures are intact. No fracture, dislocation or malalignment. Joint surfaces are perserved. There are small spurs arising from the posterior and plantar aspect of the calcaneus. Soft tissues: Normal. IMPRESSION: No acute bony abnormalities.
--- NOTE | 2023-04-06 17:19 | XR_ITS ---
PROCEDURE INFORMATION: Exam: XR Left Hand Exam date and time: 04/06/2023 5:15 PM Age: 28 years old Clinical indication: Pain; Hand; Left; Additional info: Injury to thumb from fall TECHNIQUE: Imaging protocol: Radiologic exam of the left hand. Views: 3 or more views. COMPARISON: CR [id number] XR hand LT min 3V 11/18/2017 3:22 PM FINDINGS: Bones/joints: Osseous structures are intact. No fracture or malalignment. Visualized joint surfaces are preserved. Soft tissues: Unremarkable. IMPRESSION: Negative exam. No acute bony abnormalities.
--- NOTE | 2023-04-06 17:20 | XR_ITS ---
PROCEDURE INFORMATION: Exam: XR Right Ankle Exam date and time: 04/06/2023 5:18 PM Age: 28 years old Clinical indication: Injury or trauma; Fall; Blunt trauma; Ankle; Left TECHNIQUE: Imaging protocol: Radiologic exam of the right ankle. Views: 3 or more views. COMPARISON: No relevant prior studies available. FINDINGS: Bones/joints: Osseous structures are intact. No fracture, dislocation or malalignment. Joint surfaces are perserved. There are small spurs arising from the posterior and plantar aspect of the calcaneus. Soft tissues: Normal. IMPRESSION: No acute bony abnormalities.
[2023-04-06 18:05] VITALS: BP 125/86; PULSE 85; RESP 20; TEMP 36.7; O2SAT 98; BMI 35.6
--- NOTE | 2023-04-06 18:13 | EXP.UTC ---
Discharge Plan Disposition Patient Disposition: Home, Self-Care Condition: Good Prescriptions Prescriptions: New naproxen 500 mg tablet 500 mg PO BID PRN (Reason: pain) Qty: 20 0RF methylprednisolone [Medrol (Yoel)] 4 mg tablets,dose pack See Rx Instructions .Route .COMPLEX 6 Days Qty: 21 0RF Rx Instructions: taper pack; Referrals Follow up/Referrals: Jagjit Menendez DPM [Physician] - See instructions Lenore Fisher APRN [Nurse Practitioner] - See instructions Desire Fuller APRN [Primary Care Provider] - See instructions Activity Restrictions/Add. Instructions Additional Instructions/Restrictions: Follow up with Yoly gama for further evaluation of left thumb as you have seen them before Follow up with Podiatry over pain in the back of your right heel area call office for appointment Return if needed Take medication as prescribed No Ibuprofen, Motrin Aleeve or other NSAID with Naproxen if you need something else take Tylenol Clinical Impressions Clinical Impression: Achilles tendinitis Qualifiers: Laterality: right Qualified Code(s): M76.61 - Achilles tendinitis, right leg Instructions Patient Instructions: DI for Tendinitis Discharge ED Provider: Anne-Marie Sood [facility] General Stated complaint: right ankle pain, left thumb pain, no accident Mode of Arrival: Ambulatory Source of Information: Patient Limitations: No Limitations Time Seen by Provider: 04/06/23 18:13 Description of Symptoms (Recalled from Triage Doc. by RN): PATIENT C/O LEFT THUMB AND RIGHT ANKLE/HEEL PAIN THAT STARTED TUESDAY, NO KNOWN INJURY HEENT Symptoms (Recalled from RN notes): No Resp Symptoms (Recalled from RN notes): No Skin Symptoms (Recalled from RN notes): No MS Symptoms (Recalled from RN notes): Yes Functional Status (Recalled from RN notes): WNL History of Present Illness Provider Complaint: Patient states that she has been having pain in her left thumb since Tuesday in the same area that she had a cyst removed when she was a teen not sure if it may be coming back or not and states that she is also having pain in the back of her right heel area States that she injured her Achilles Tendon area and states that at times it feels tight and hurts Denies known known injury Related Data Previous Rx's Medication Instructions Recorded methylprednisolone 4 mg tablets in See Rx Instructions .Route 04/06/23 a dose pack (Medrol (Yoel)) .COMPLEX 6 days #21 tabs naproxen 500 mg tablet 500 mg PO BID PRN pain #20 tabs 04/06/23 Allergies Allergy/AdvReac Type Severity Reaction Status Date / Time Cephalosporins Allergy Verified 10/18/22 19:11 lemon Allergy Verified 10/18/22 19:11 Worker's Comp Is this a Worker's Comp case?: No [facility] Disclaimer: The information contained in this section may have been updated after the patient was seen, as this information can be updated by other users. Medical History (Updated 04/06/23 @ 18:26 by Anne-Marie Sood APRN) Asthma Kidney stone Surgical History (Updated 01/21/23 @ 17:31 by Pippa Neumann RN) History of removal of cyst History of tonsillectomy History of tympanostomy tube placement Social History Smoking Status: Never smoker alcohol intake: never current occupational status: employed Travel in the last 8 weeks: None ROS Obtained: Yes All systems reviewed & no additional complaints except as documented and Yes Systems reviewed as appropriate & no additional complaints except as documented Constitutional Constitutional: Reports system reviewed and no additional complaints, except as documented and Reports as per HPI Cardiovascular Cardiovascular: Reports system reviewed and no additional complaints, except as documented and Reports as per HPI Respiratory Respiratory: Reports system reviewed and no additional complaints, except as documented and Reports as per HPI Musculoskeletal Musculoskele
[2023-04-06 18:28] VITALS: BP 125/86; PULSE 85; RESP 20; TEMP 36.7; O2SAT 98
== END 2023-04-06 18:30 | disposition home or self-care (01) ==
PROVIDERS: Emergency Provider Nurse Practitioner; PCP Nurse Practitioner Family
DX: M76.61 Achilles tendinitis, right leg (principal); M79.645 Pain in left finger(s); J45.909 Unspecified asthma, uncomplicated
CPT/HCPCS: 73130; 73610; 73630; 99212; 99214; G0463

== ENCOUNTER 2023-05-13 17:16 | Emergency (ER) | payer OTHER, SELFPAY ==
[2023-05-13 17:17] VITALS: BP 149/99; PULSE 94; RESP 18; TEMP 36.8; O2SAT 98; BMI 35.7
--- NOTE | 2023-05-13 17:38 | EXP.UTC ---
Discharge Plan Disposition Patient Disposition: Home, Self-Care Condition: Good Prescriptions Prescriptions: New azithromycin [Zithromax] 250 mg tablet 250 mg PO UD DOSE PK Qty: 6 0RF Rx Instructions: Take two (2) tablets today, then one (1) tablet days #2 thru #5 methylprednisolone 4 mg Tablets,Dose Pack 4 mg PO DIRECTED Qty: 21 0RF ondansetron 4 mg Tablet,Disintegrating 4 mg PO Q8H PRN (Reason: Nausea) Qty: 12 0RF benzonatate [benzonatate] 100 mg capsule 100 mg PO TIDP PRN (Reason: Cough) Qty: 30 0RF Referrals Follow up/Referrals: Desire Fuller APRN [Primary Care Provider] - See instructions Activity Restrictions/Add. Instructions Additional Instructions/Restrictions: Drink plenty of fluids. Take tylenol or ibuprofen for pain or fever. Take the medications as directed. Follow up with your regular doctor. GO TO THE ER FOR ANY WORSENING SYMPTOMS Clinical Impressions Clinical Impression: Pharyngitis, Acute viral syndrome, Bronchitis Stand Alone Forms Stand Alone Forms: Work/School Release Instructions Patient Instructions: Sore Throat, DI for Pharyngitis/Tonsillopharyngitis -- Adult, DI for Acute Bronchitis, DI for Viral Syndrome Discharge ED Provider: Rajiv Li [facility] General Stated complaint: possible uti, bilateral ear pain, sore throat Time Seen by Provider: 05/13/23 17:38 History of Present Illness Provider Complaint: She states that for the past 4 days she has had sinus congestion, chest congestion, pleuritic type back pain, sore throat, chills, and malaise. Related Data Previous Rx's Medication Instructions Recorded azithromycin 250 mg tablet 250 mg PO UD DOSE PK #6 tabs 05/13/23 (Zithromax) benzonatate 100 mg capsule 100 mg PO TIDP PRN Cough #30 caps 05/13/23 methylprednisolone 4 mg tablets in 4 mg PO DIRECTED #21 tabs 05/13/23 a dose pack ondansetron 4 mg disintegrating 4 mg PO Q8H PRN Nausea #12 tabs 05/13/23 tablet Allergies Allergy/AdvReac Type Severity Reaction Status Date / Time Cephalosporins Allergy Verified 05/13/23 17:44 lemon Allergy Verified 05/13/23 17:44 [facility] Disclaimer: The information contained in this section may have been updated after the patient was seen, as this information can be updated by other users. Medical History (Updated 05/13/23 @ 17:52 by Rajiv Li APRN) Asthma Kidney stone Surgical History History of removal of cyst History of tonsillectomy History of tympanostomy tube placement Social History Smoking Status: Never smoker alcohol intake: never current occupational status: employed Travel in the last 8 weeks: None ROS Obtained: Yes All systems reviewed & no additional complaints except as documented Constitutional Constitutional: Reports chills and Reports fever(s) Eyes Eyes: Denies eye discharge ENT Ears, Nose, Mouth, and Throat: Reports as per HPI Cardiovascular Cardiovascular: Denies chest pain Respiratory Respiratory: Denies chest congestion and Reports cough Gastrointestinal Gastrointestingal: Reports nausea; Denies abdominal pain, constipation, cramping, diarrhea or vomiting Musculoskeletal Musculoskeletal: Denies arthralgias Integumentary/Breasts Skin/Breast: Denies rash Neurologic Neurologic: Denies paresthesias Physical Exam General General appearance: alert and in no apparent distress Head Head exam: atraumatic, normocephalic and normal inspection Eye Eye exam: Present normal appearance, PERRL and EOMI ENT ENT exam: Present mucous membranes moist and normal external ear exam Expanded ENT Exam TM/Canal exam: Bilateral TM: erythema and bulging Nose exam: Absent sinus tenderness Mouth exam: Present normal external inspection; Absent drooling Teeth exam: Present normal inspection Throat exam: Present tonsillar erythema, tonsillomegaly and ton
[2023-05-13 17:49] LABS: Microscopic, Urine URINE MICROSCOPIC (MICROSCOPIC)
[2023-05-13 17:51] LABS: Appearance,Urine CLEAR (Clear); Bilirubin,Urine Negative (Negative); Blood, Urine TRACE-I (Negative); Color,Urine YELLOW (Yellow); Glucose,Urine (UA) Negative (Negative); Ketones,Urine Negative (Negative); Leukocyte Esterase,Urine Negative (Negative); Nitrate,Urine Negative (Negative); Protein,Urine Negative (Negative); Urobilinogen,Urine 0.2 EU/dl (0.2)
[2023-05-13 17:53] LABS: UTC Strep Screen (Rapid) Negative (Negative)
[2023-05-13 17:59] LABS: RBC,Urine Occasional #/hpf (0-3); Squamous Epithelial Cell,Urine Occasional #/hpf (0-5); WBC,Urine Occasional #/hpf (0-3)
[2023-05-13 18:06] VITALS: BP 149/99; PULSE 94; RESP 18; TEMP 36.8; O2SAT 98
== END 2023-05-13 18:06 | disposition home or self-care (01) ==
PROVIDERS: Emergency Provider Nurse Practitioner Family; PCP Nurse Practitioner Family
DX: J20.9 Acute bronchitis, unspecified (principal); J02.9 Acute pharyngitis, unspecified; B34.9 Viral infection, unspecified; J45.909 Unspecified asthma, uncomplicated; Z87.442 Personal history of urinary calculi
CPT/HCPCS: 81001; 87635; 87880; 99212; 99214; G0463

== ENCOUNTER 2023-06-17 18:42 | Emergency (ER) | payer OTHER, SELFPAY ==
[2023-06-17 18:50] VITALS: BP 137/79; PULSE 88; RESP 20; TEMP 36.7; O2SAT 95; BMI 35.9
--- NOTE | 2023-06-17 19:00 | EXP.UTC ---
Discharge Plan Disposition Patient Disposition: Home, Self-Care Condition: Good Prescriptions Prescriptions: New amoxicillin-pot clavulanate 875-125 mg Tablet 1 tab PO Q12H Qty: 20 0RF guaifenesin [Mucinex] 600 mg tablet extended release 12hr 1,200 mg PO BID PRN (Reason: cough) Qty: 20 0RF methylprednisolone [Medrol (Yoel)] 4 mg tablets,dose pack See Rx Instructions .Route .COMPLEX 6 Days Qty: 21 0RF Rx Instructions: taper pack; Referrals Follow up/Referrals: Desire Fuller APRN [Primary Care Provider] - See instructions Activity Restrictions/Add. Instructions Additional Instructions/Restrictions: *Monitor Temp, Over the counter Motrin or Tylenol as directed/as needed Tylenol every 4 hours and Motrin every 6 hours (as long as your family doctor has told you that you can take it) for fever or pain. and straight to ER if unable to lower temp less than 101.0 after medication given *Warm salt water gargles may help to soothe the throat *Throat Lozenges? *Warm fluids like tea with honey may help to soothe the throat? *Sleep elevated *Humidifier/Vaporizer Take medication as prescribed Follow up IMMEDIATELY for new or worsening symptoms or no Noticeable improvement over the next 48-72 hours. 911 for difficulty breathing or swallowing You were tested for today for Upper Respiratory Panel with COVID19 your test result should be back in the next 24hrs You can check your results on the [facility] if your COVID test is positive you must Quarantine for the next 5 days Clinical Impressions Clinical Impression: Sinusitis Qualifiers: Sinusitis location: unspecified location Chronicity: unspecified Qualified Code(s): J32.9 - Chronic sinusitis, unspecified Instructions Patient Instructions: DI for Sinusitis, Sinusitis Discharge ED Provider: Anne-Marie Sood [facility] General Stated complaint: crissy, exposed to RSV Mode of Arrival: Ambulatory Source of Information: Patient Limitations: No Limitations Time Seen by Provider: 06/17/23 19:00 Description of Symptoms (Recalled from Triage Doc. by RN): PATIENT C/O CHEST AND SINUS CONGESTION THAT STARTED TUESDAY. 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 and not sure if she may have one of those viruses or if it is a bad sinus infection since she has taken OTC medications but nothing has helped Related Data Previous Rx's Medication Instructions Recorded amoxicillin 875 mg-potassium 1 tab PO Q12H #20 tabs 06/17/23 clavulanate 125 mg tablet guaifenesin 600 mg tablet, 1,200 mg PO BID PRN cough #20 tabs 06/17/23 extended release 12 hr (Mucinex) methylprednisolone 4 mg tablets in See Rx Instructions .Route 06/17/23 a dose pack (Medrol (Yoel)) .COMPLEX 6 days #21 tabs Allergies Allergy/AdvReac Type Severity Reaction Status Date / Time Cephalosporins Allergy Verified 05/13/23 17:44 lemon Allergy Verified 05/13/23 17:44 Worker's Comp Is this a Worker's Comp case?: No [facility] Disclaimer: The information contained in this section may have been updated after the patient was seen, as this information can be updated by other users. Medical History (Updated 06/17/23 @ 19:13 by Anne-Marie Sood APRN) Asthma Kidney stone Surgical History History of removal of cyst History of tonsillectomy History of tympanostomy tube placement Social History (Reviewed 05/13/23 @ 17:44 by Willow Moya
[2023-06-17 19:04] LABS: Adenovirus,PCR Not Detected (NotDetected); Coronavirus 19, PCR Not Detected (NotDetected); Coronavirus 229E Not Detected (NotDetected); Coronavirus NL63 Not Detected (NotDetected); Coronavirus OC43 Not Detected (NotDetected); Coronovirus HKU1,PCR Not Detected (NotDetected); Human Metapneumovirus Not Detected (NotDetected); Influenza A, PCR Not Detected (NotDetected); Influenza AH1, 2009 Not Detected (NotDetected); Influenza AH1, PCR Not Detected (NotDetected); Influenza AH3,PCR Not Detected (NotDetected); Influenza B, PCR Not Detected (NotDetected); Parainfluenza 1, PCR Not Detected (NotDetected); Parainfluenza 2, PCR Not Detected (NotDetected); Parainfluenza 3, PCR Not Detected (NotDetected); Parainfluenza 4, PCR Not Detected (NotDetected)
[2023-06-17 19:14] VITALS: BP 137/79; PULSE 88; RESP 20; TEMP 36.7; O2SAT 95
[2023-06-17 21:58] LABS: Respiratory Syncytial Virus Detected (NotDetected); Rhinovirus/Enterovirus Detected (NotDetected)
== END 2023-06-17 19:18 | disposition home or self-care (01) ==
PROVIDERS: Emergency Provider Nurse Practitioner; PCP Nurse Practitioner Family
DX: J01.90 Acute sinusitis, unspecified (principal); B97.4 Respiratory syncytial virus as the cause of diseases classified elsewhere; R09.81 Nasal congestion; R05.9 Cough, unspecified; R09.89 Other specified symptoms and signs involving the circulatory and respiratory systems
CPT/HCPCS: 87632; 87635; 99212; 99214; G0463

== ENCOUNTER 2023-10-03 11:55 | Emergency (ER) | payer OTHER, SELFPAY ==
[2023-10-03 11:57] VITALS: BP 128/87; PULSE 96; RESP 18; TEMP 37; O2SAT 98; BMI 37.2
[2023-10-03 12:11] VITALS: BMI 37.2
[2023-10-03 12:21] VITALS: BP 123/78; PULSE 102; RESP 16; O2SAT 99
[2023-10-03 12:37] LABS: Coronavirus 19, PCR Not Detected (NotDetected); Influenza A, PCR Not Detected (NotDetected); Influenza B, PCR Not Detected (NotDetected)
[2023-10-03 12:51] LABS: Strep Scrn Group A (Rapid) Positive (Negative)
--- NOTE | 2023-10-03 13:34 | PC.NURSE ---
ED MD AT BEDSIDE
--- NOTE | 2023-10-03 13:40 | HMH.EDGENADL ---
Discharge Plan Disposition Patient Disposition: Home, Self-Care Condition: Good Prescriptions Prescriptions: New amoxicillin-pot clavulanate 875-125 mg tablet 1 tab PO TID 10 Days Qty: 30 0RF No Action amoxicillin-pot clavulanate 875-125 mg Tablet 1 tab PO Q12H Qty: 20 0RF guaifenesin [Mucinex] 600 mg tablet extended release 12hr 1,200 mg PO BID PRN (Reason: cough) Qty: 20 0RF methylprednisolone [Medrol (Yoel)] 4 mg tablets,dose pack See Rx Instructions .Route .COMPLEX 6 Days Qty: 21 0RF Rx Instructions: taper pack; Referrals Follow up/Referrals: Dionna Gonzalez MD [Primary Care Provider] - See instructions Activity Restrictions/Add. Instructions Additional Instructions/Restrictions: You were seen in the ED today due to ear infections and strep throat. Please take antibiotics as prescribed. Follow-up with primary care provider. Return to the ED if any symptoms worsen or if new concerning symptoms arise. Thank you. Clinical Impressions Clinical Impression: Strep throat Otitis media Qualifiers: Otitis media type: suppurative Chronicity: acute Laterality: bilateral Recurrence: non-recurrent Spontaneous tympanic membrane rupture: without spontaneous rupture Qualified Code(s): H66.003 - Acute suppurative otitis media without spontaneous rupture of ear drum, bilateral Instructions Patient Instructions: Middle Ear Infection, DI for Strep Throat Discharge ED Provider: Ronaldo Schumacher General Adult HPI General Chief complaint: Upper Respiratory Infection Stated complaint: sore throat, fever, pain in both ears Time Seen by Provider: 10/03/23 13:00 Mode of Arrival: Ambulatory Source of Information: Patient Limitations: No Limitations Description of Symptoms (Recalled from ER Triage Doc. by RN): PT C/O FEVER SORE THROAT, BODY ACHES AND NASAL CONGESTION X 1 DAY History of Present Illness HPI narrative: Patient is an otherwise healthy 28-year-old female presenting due to ear and throat pain. Patient reports symptoms began yesterday. She has been having pain in both ears and in her throat. States she has been able to tolerate oral intake but with difficulty. Reports she has had subjective fevers at home. Denies any nausea/vomiting, difficulty breathing, chest pain,, dysuria, diarrhea. Related Data Previous Rx's Medication Instructions Recorded amoxicillin 875 mg-potassium 1 tab PO Q12H #20 tabs 06/17/23 clavulanate 125 mg tablet guaifenesin 600 mg tablet, 1,200 mg PO BID PRN cough #20 tabs 06/17/23 extended release 12 hr (Mucinex) methylprednisolone 4 mg tablets in See Rx Instructions .Route 06/17/23 a dose pack (Medrol (Yoel)) .COMPLEX 6 days #21 tabs amoxicillin 875 mg-potassium 1 tab PO TID 10 days #30 tabs 10/03/23 clavulanate 125 mg tablet Allergies Allergy/AdvReac Type Severity Reaction Status Date / Time Cephalosporins Allergy Verified 05/13/23 17:44 lemon Allergy Verified 05/13/23 17:44 [facility] Disclaimer: The information contained in this section may have been updated after the patient was seen, as this information can be updated by other users. Medical History (Updated 10/03/23 @ 14:41 by Ronaldo Schumacher MD) Asthma Kidney stone Surgical History History of removal of cyst History of tonsillectomy History of tympanostomy tube placement Social History Smoking Status: Never smoker alcohol intake: never current occupational status: employed Travel in the last 8 weeks: None ROS Obtained: Yes All systems reviewed & no additional complaints except as documented Constitutional Constitutional: Denies chills and Reports fever(s) ENT Ears, Nose, Mouth, and Throat: Reports nasal congestion and Reports other (Ear pain) Respiratory Respiratory: Denies cough Physical Exam General General appearance: alert and in no apparent distress Head Head exam: atraumatic, normocephalic, normal inspection and other (Posterior oropharyngeal erythema) Eye Eye exam: Present normal appearance, PERRL and EOMI ENT ENT exam: Present normal exam, normal oropharynx, mucous membranes moist, normal external ear exam and other (Bilateral purulent TM effusions); Absent TM's normal bilaterally Neck Neck exam: Present normal inspection, full ROM and trachea midline; Absent meningismus or lymphadenopathy Chest Chest inspection: Present normal inspection and symmetric chest wall rise; Absent tenderness Respiratory Respiratory exam: Present normal lung sounds bilaterally; Absent respiratory distress Cardiovascular Cardiovascular exam: Present regular rate and normal rhythm; Absent JVD Abdominal Exam Abdominal exam: Present soft and normal bowel sounds; Absent distention, tenderness or guarding Extremities Exam Extremities exam: Present normal inspection, full ROM and normal capillary refill; Absent calf tenderness Back Exam Back exam: Present normal inspection; Absent tenderness Neurological Exam Neurological exam: Present alert and oriented X3 Psychiatric Psychiatric exam: Present normal affect and normal mood Skin Skin exam: Present warm, dry, intact and normal color Lymphatic Lymphatic Findings: no adenopathy Medical Decision Making Medical Records Medical records reviewed: Yes I reviewed the patient's medical records. Marquis Inquiry Pt receiving controlled substance: No Marquis was queried for this patient: No Vital Signs: 10/03/23 11:57 10/03/23 12:21 Temperature 98.6 F Temperature Source Oral Pulse Rate 102 H Pulse Rate [Radial] 96 H Respiratory Rate 18 16 Blood Pressure 123/78 Blood Pressure [Right Arm] 128/87 Blood Pressure Mean [Right Arm] 100 Blood Pressure Source Manual Cuff/ Auscultation Blood Pressure Source [Right Arm] Automatic Cuff Blood Pressure Position Sitting Blood Pressure Position [Right Arm] Sitting 02 Sat by Pulse Oximetry 98 99 Oxygen Delivery Method Room Air Lab Data Lab Results 10/03/23 12:05: Group A Strep Rapid Positive A 10/03/23 12:10: SARS-CoV-2 (PCR) Not detected, Influenza A Untype (PCR) Not detected, Influenza Type B (PCR) Not detected Orders (Tests/Meds): ED MEDICATIONS Discontinued Medications Generic Name Dose Route Start Last Admin Trade Name Azq PRN Reason Stop Dose Admin Amoxicillin/Clavulanate Potassium 1 each 10/03/23 13:39 10/03/23 13:50 Amoxicillin/Clavulanate Potassium 875/125mg Tablet PO 10/03/23 13:40 1 each ONCE ONE Administration Dexamethasone 10 mg 10/03/23 13:41 10/03/23 13:51 Dexamethasone 4mg Tablet PO 10/03/23 13:42 10 mg ONCE ONE Administration ORDERS Category Date Time Status Rapid PCR Covid and Flu A/B Stat Lab 10/03/23 12:10 Completed Strep Scrn Group A (Rapid) Stat Lab 10/03/23 12:05 Completed Medical Decision Narrative: In summary, patient is otherwise healthy 28-year-old female, evaluated in the emergency department today due to ear and throat pain. On arrival, patient is hemodynamically stable. On examination, patient has posterior oropharyngeal erythema and bilateral TM effusions. Differential diagnosis includes but is not limited to strep pharyngitis, viral upper respiratory tract infection, otitis media. Workup initiated including COVID/flu swab, strep swab. Labs independently interpreted by me and significant for positive group A strep. Patient given oral Augmentin, oral Decadron. On reevaluation, is overall well-appearing and tolerating oral intake. She is appropriate for discharge at this time. Will treat her bilateral otitis media and strep pharyngitis with oral Augmentin. Prescription provided. Patient states she will follow-up with primary care provider. Patient counseled on home care, given strict return precautions and agreeable to plan. I considered the utility of obtaining labs including a BMP, CBC but decided against this because this would not private branch exchange repairer. I considered the utility of treatment with IV antibiotics, but decided against this because patient is tolerating oral intake. Procedures Risk/Benefits of Procedure(s) Were Explained: Yes Critical Care Critical Care Time Critical Care Time: No
[2023-10-03] MEDS: AMOXICILLIN/CLAVULANATE POTASSIUM 875/125MG TABLET 1 EACH PO (13:50)
[2023-10-03] MEDS: DEXAMETHASONE 4MG TABLET 10 MG PO (13:51)
[2023-10-03 14:50] VITALS: BP 120/78; PULSE 80; RESP 17; TEMP 37; O2SAT 98
== END 2023-10-03 15:00 | disposition home or self-care (01) ==
PROVIDERS: Emergency Provider Student in an Organized Health Care Education/Training Program; PCP Family Medicine
DX: J02.0 Streptococcal pharyngitis (principal); R07.0 Pain in throat; H66.003 Acute suppurative otitis media without spontaneous rupture of ear drum, bilateral; R50.9 Fever, unspecified; H92.03 Otalgia, bilateral
CPT/HCPCS: 87430; 87636; 99283

== ENCOUNTER 2023-12-02 17:08 | Emergency (ER) | payer SELFPAY ==
[2023-12-02 18:05] VITALS: BP 151/97; PULSE 108; RESP 20; TEMP 38; O2SAT 96; BMI 36.8
[2023-12-02 18:20] LABS: UTC Influenza A Antigen Negative (Negative); UTC Influenza B Antigen Negative (Negative)
[2023-12-02 18:26] VITALS: BP 151/97; PULSE 108; RESP 20; TEMP 38; O2SAT 96
--- NOTE | 2023-12-02 18:28 | EXP.UTC ---
Discharge Plan Disposition Patient Disposition: Home, Self-Care Condition: Good Prescriptions Prescriptions: New prednisone 20 mg tablet 20 mg PO BID 5 Days Qty: 10 0RF benzonatate 100 mg capsule 100 mg PO TID PRN (Reason: cough) Qty: 30 0RF amoxicillin-pot clavulanate 875-125 mg Tablet 1 tab PO Q12H Qty: 20 0RF Referrals Follow up/Referrals: Dionna Gonzalez MD [Primary Care Provider] - See instructions Activity Restrictions/Add. Instructions Additional Instructions/Restrictions: Start antibiotic today. Be sure to complete entire prescription even if feeling better Monitor temp. Tylenol every 4 hours as needed and / or ibuprofen every 6 hours as needed ( As long as your primary care physician has told you that it ok to take both. For fever/aches/pains ER if no less than 101 despite Tylenol or Motrin Humidifier/vaporizer or hot steamy shower *Tessalon Perles will not cause drowsiness but use at bedtime to help stop cough so that you may get some rest. *Start steroid today. Helps with inflammation therefore, cough and wheezing. Follow directions on the package. Reviewed side effects. Patient reports taking them before. Follow up IMMEDIATELY for new or worsening of symptoms OR no noticeable improvement over the next 48-72 hours. 911 immediately for any life threatening symptoms such as chest pain or difficulty breathing Clinical Impressions Clinical Impression: Bronchitis, Sinusitis Instructions Patient Instructions: DI for Sinusitis, Sinusitis, Acute Bronchitis Discharge ED Provider: Anne-Marie Sood [facility] General Stated complaint: cough, chills, lung pain Mode of Arrival: Ambulatory Source of Information: Patient Limitations: No Limitations Time Seen by Provider: 12/02/23 18:28 Description of Symptoms (Recalled from Triage Doc. by RN): PATIENT C/O COUGH AND CHEST HURTING WITH COUGH, SWEATS, AND CHILLS X 3 DAYS HEENT Symptoms (Recalled from RN notes): No Resp Symptoms (Recalled from RN notes): Yes Skin Symptoms (Recalled from RN notes): No MS Symptoms (Recalled from RN notes): No Functional Status (Recalled from RN notes): WNL History of Present Illness Provider Complaint: Patient states that she has been having sinus pain and pressure, cough, pain and pressure in her ears, drainage in the back of her throat, dry cough , burning sensation in chest area with cough and chills along with over all not feeling well States today she wasnt feeling any better so she came in to get checked Related Data Previous Rx's Medication Instructions Recorded amoxicillin 875 mg-potassium 1 tab PO Q12H #20 tabs 12/02/23 clavulanate 125 mg tablet benzonatate 100 mg capsule 100 mg PO TID PRN cough #30 caps 12/02/23 prednisone 20 mg tablet 20 mg PO BID 5 days #10 tabs 12/02/23 Allergies Allergy/AdvReac Type Severity Reaction Status Date / Time Cephalosporins Allergy Verified 05/13/23 17:44 lemon Allergy Verified 05/13/23 17:44 Worker's Comp Is this a Worker's Comp case?: No [facility] Disclaimer: The information contained in this section may have been updated after the patient was seen, as this information can be updated by other users. Medical History (Updated 12/02/23 @ 18:43 by Anne-Marie Sood APRN) Kidney stone Asthma Surgical History History of removal of cyst History of tympanostomy tube placement History of tonsillectomy Social History Smoking Status: Never smoker alcohol intake: never current occupational status: employed Travel in the last 8 weeks: None ROS Obtained: Yes All systems reviewed & no additional complaints except as documented and Yes Systems reviewed as appropriate & no additional complaints except as documented Constitutional Constitutional: Reports system reviewed and no additional complaints, except as documented, Reports as per HPI, Reports body ache, Reports chills, Reports fever(s) and Reports headache(s) ENT Ears, Nose, Mouth, and Throat: Reports system reviewed and no additional complaints, except as documented, Reports as per HPI, Reports otalgia, Reports headache(s), Reports sinus pain and Reports sinus pressure Cardiovascular Cardiovascular: Reports system reviewed and no additional complaints, except as documented and Reports as per HPI Respiratory Respiratory: Reports system reviewed and no additional complaints, except as documented, Reports as per HPI, Denies shortness of breath, Reports chest congestion, Reports cough and Reports pain with cough Gastrointestinal Gastrointestingal: Reports system reviewed and no additional complaints, except as documented and as per HPI Neurologic Neurologic: Reports headache(s) Physical Exam General General appearance: alert and in no apparent distress ENT ENT exam: Present mucous membranes moist Expanded ENT Exam TM/Canal exam: Right TM: erythema and bulging Nose exam: Present sinus tenderness Throat exam: Present other (Pharyngeal erythema noted with PND) Respiratory Respiratory exam: Present normal lung sounds bilaterally; Absent respiratory distress or wheezes Cardiovascular Cardiovascular exam: Present regular rate, normal rhythm and tachycardia Abdominal Exam Abdominal exam: Present soft and normal bowel sounds; Absent distention or tenderness Neurological Exam Neurological exam: Present alert, oriented X3 and normal gait Medical Decision Making Marquis Inquiry Pt receiving controlled substance: No Marquis was queried for this patient: No Vital Signs: 12/02/23 18:05 12/02/23 18:26 Temperature 100.4 F H 100.4 F H Temperature Source Oral Pulse Rate 108 H Pulse Rate [Left Brachial] 108 H Respiratory Rate 20 20 Blood Pressure 151/97 H Blood Pressure [Left Arm] 151/97 H Blood Pressure Mean [Left Arm] 115 Blood Pressure Source [Left Arm] Automatic Cuff Blood Pressure Position [Left Arm] Sitting 02 Sat by Pulse Oximetry 96 Oxygen Delivery Method Room Air Lab Data Lab results reviewed: Yes I reviewed the patient's lab results. Lab Results 12/02/23 18:20: Influenza Type A Ag Negative, Influenza Type B Ag Negative Medical Decision Narrative: Patient states that she is allergic to Cephalosporins but has taken augmentin in the past without complications or reactions Discussed CXR patient declined
== END 2023-12-02 18:47 | disposition home or self-care (01) ==
PROVIDERS: Emergency Provider Nurse Practitioner; PCP Family Medicine
DX: J20.9 Acute bronchitis, unspecified (principal); J01.90 Acute sinusitis, unspecified; R50.9 Fever, unspecified; R51.9 Headache, unspecified; H92.03 Otalgia, bilateral
CPT/HCPCS: 87804; 99212; 99214; G0463

== ENCOUNTER 2024-02-24 15:14 | Emergency (ER) | payer SELFPAY ==
[2024-02-24 15:38] VITALS: BP 143/83; PULSE 115; RESP 16; TEMP 37.5; O2SAT 95; BMI 37.0
--- NOTE | 2024-02-24 16:13 | ED_ITS ---
Discharge Plan Disposition Patient Disposition: Home, Self-Care Condition: Good Prescriptions Prescriptions: New amoxicillin 875 mg tablet 875 mg PO Q12H Qty: 20 0RF methylprednisolone 4 mg Tablets,Dose Pack 4 mg PO DIRECTED 6 Days Qty: 21 0RF Rx Instructions: Take 1 pack as directed for 6 days wiyuyevagmyttck-ljaawaxon-DK [Bromfed DM] 2-30-10 mg/5 mL Syrup 5 ml PO Q6H PRN (Reason: Cough) Qty: 240 0RF No Action prednisone 20 mg tablet 20 mg PO BID 5 Days Qty: 10 0RF benzonatate 100 mg capsule 100 mg PO TID PRN (Reason: cough) Qty: 30 0RF amoxicillin-pot clavulanate 875-125 mg Tablet 1 tab PO Q12H Qty: 20 0RF Referrals Follow up/Referrals: Gila Tripp APRN [Primary Care Provider] - See instructions Activity Restrictions/Add. Instructions Additional Instructions/Restrictions: Drink plenty of fluids. Take tylenol or ibuprofen for pain or fever. Take the medications as directed. Follow up with your regular doctor. GO TO THE ER FOR ANY WORSENING SYMPTOMS Clinical Impressions Clinical Impression: Acute viral syndrome Otitis media Qualifiers: Otitis media type: suppurative Chronicity: acute Laterality: bilateral Recurrence: non-recurrent Spontaneous tympanic membrane rupture: without spontaneous rupture Qualified Code(s): H66.003 - Acute suppurative otitis media without spontaneous rupture of ear drum, bilateral Stand Alone Forms Stand Alone Forms: Work/School Release Instructions Patient Instructions: Middle Ear Infection, DI for Viral Syndrome Print Language Print Language: Danish Discharge ED Provider: Rajiv Li [facility] [place] HPI General Stated complaint: fever/chills, h/a, shakey Mode of Arrival: Ambulatory Source of Information: Patient Limitations: No Limitations Time Seen by Provider: 02/24/24 16:13 Description of Symptoms (Recalled from Triage Doc. by RN): Patient complaint of possible ear infection. Complaint of pain in bilateral ears, fever, chills and headache since this morning. HEENT Symptoms (Recalled from RN notes): Yes Resp Symptoms (Recalled from RN notes): No Skin Symptoms (Recalled from RN notes): No MS Symptoms (Recalled from RN notes): No Functional Status (Recalled from RN notes): wnl Related Data Previous Rx's ?Medication ?Instructions ?Recorded amoxicillin 875 mg-potassium 1 tab PO Q12H #20 tabs 12/02/23 clavulanate 125 mg tablet benzonatate 100 mg capsule 100 mg PO TID PRN cough #30 caps 12/02/23 prednisone 20 mg tablet 20 mg PO BID 5 days #10 tabs 12/02/23 amoxicillin 875 mg tablet 875 mg PO Q12H #20 tabs 02/24/24 mgtjlawoarvzmlg-fbudwhtpiqotnag-HI 5 ml PO Q6H PRN Cough #240 mL 02/24/24 2 mg-30 mg-10 mg/5 mL oral syrup (Bromfed DM) methylprednisolone 4 mg tablets in 4 mg PO DIRECTED 6 days #21 tabs 02/24/24 a dose pack Allergies Allergy/AdvReac Type Severity Reaction Status Date / Time Cephalosporins Allergy Verified 05/13/23 17:44 lemon Allergy Verified 05/13/23 17:44 Worker's Comp Is this a Worker's Comp case?: No [facility] Disclaimer: The information contained in this section may have been updated after the patient was seen, as this information can be updated by other users. Medical History (Updated 02/24/24 @ 16:21 by Rajiv Li APRN) Kidney stone Asthma Surgical History History of removal of cyst History of tympanostomy tube placement History of tonsillectomy Social History Smoking Status: Never smoker alcohol intake: never current occupational status: employed Travel in the last 8 weeks: None ROS Obtained: Yes All systems reviewed & no additional complaints except as documented Constitutional Constitutional: Denies chills, Reports fever(s) and Reports poor appetite Eyes Eyes: Denies eye discharge ENT Ears, Nose, Mouth, and Throat: Denies ear discharge, Reports otalgia, Denies hearing loss, Denies sinus pain and Reports sore throat Cardiovascular Cardiovascular: Denies chest pain and Denies dyspnea Respiratory Respiratory: Denies chest congestion, Reports cough and Denies dyspnea Gastrointestinal Gastrointestingal: Denies abdominal pain, diarrhea, nausea or vomiting Musculoskeletal Musculoskeletal: Denies arthralgias Integumentary/Breasts Skin/Breast: Denies rash Physical Exam General General appearance: alert and in no apparent distress Head Head exam: atraumatic, normocephalic and normal inspection Eye Eye exam: Present normal appearance; Absent PERRL or EOMI ENT ENT exam: Present mucous membranes moist and normal external ear exam Expanded ENT Exam TM/Canal exam: Bilateral TM: erythema, bulging and effusion Nose exam: Absent sinus tenderness Nasal speculum exam: Bilateral: normal Mouth exam: Present normal external inspection and other; Absent drooling Teeth exam: Present normal inspection Throat exam: Present tonsillar erythema and tonsillomegaly Neck Neck exam: Present normal inspection, full ROM and trachea midline; Absent tenderness, meningismus or lymphadenopathy Chest Chest inspection: Present normal inspection and symmetric chest wall rise; Absent tenderness Respiratory Respiratory exam: Present normal lung sounds bilaterally; Absent respiratory distress, wheezes or stridor Cardiovascular Cardiovascular exam: Present regular rate, normal rhythm and normal heart sounds; Absent tachycardia or irregular rhythm Abdominal Exam Abdominal exam: Present soft and normal bowel sounds; Absent distention, te nderness, guarding, rebound or rigidity Extremities Exam Extremities exam: Present normal inspection and normal capillary refill; Absent tenderness, joint swelling or calf tenderness Back Exam Back exam: Present normal inspection and full ROM; Absent tenderness, CVA tenderness (R) or CVA tenderness (L) Neurological Exam Neurological exam: Present alert, oriented X3, CN II-XII intact, normal gait and reflexes normal; Absent motor sensory deficit Psychiatric Psychiatric exam: Present normal affect and normal mood Skin Skin exam: Present warm, dry, intact and normal color Lymphatic Lymphatic Findings: no adenopathy Medical Decision Making Medical Records Medical records reviewed: No I reviewed the patient's medical records. Marquis Inquiry Pt receiving controlled substance: No Vital Signs: 02/24/24 15:38 Temperature 99.5 F Temperature Source Oral Pulse Rate [Radial] 115 H Respiratory Rate 16 Blood Pressure [Right Arm] 143/83 H Blood Pressure Mean [Right Arm] 103 Blood Pressure Source [Right Arm] Automatic Cuff Blood Pressure Position [Right Arm] Sitting 02 Sat by Pulse Oximetry 95 Oxygen Delivery Method Room Air Lab Data Lab results reviewed: Yes I reviewed the patient's lab results.
[2024-02-24 16:30] LABS: Adenovirus,PCR Not Detected (NotDetected); Bordetella Pertussis Not Detected (NotDetected); Chlamydophila Pneumoniae, PCR Not Detected (NotDetected); Coronavirus 19, PCR Not Detected (NotDetected); Coronavirus 229E Not Detected (NotDetected); Coronavirus NL63 Not Detected (NotDetected); Coronavirus OC43 Not Detected (NotDetected); Coronovirus HKU1,PCR Not Detected (NotDetected); Human Metapneumovirus Not Detected (NotDetected); Influenza A, PCR Not Detected (NotDetected); Influenza AH1, 2009 Not Detected (NotDetected); Influenza AH1, PCR Not Detected (NotDetected); Influenza AH3,PCR Not Detected (NotDetected); Influenza B, PCR Not Detected (NotDetected); Mycoplasma Pneumoniae, PCR Not Detected (NotDetected); Parainfluenza 1, PCR Not Detected (NotDetected); Parainfluenza 2, PCR Not Detected (NotDetected); Parainfluenza 3, PCR Not Detected (NotDetected); Parainfluenza 4, PCR Not Detected (NotDetected); Respiratory Syncytial Virus Not Detected (NotDetected); Rhinovirus/Enterovirus Not Detected (NotDetected)
[2024-02-24 16:32] VITALS: BP 143/83; PULSE 115; RESP 16; TEMP 37.5; O2SAT 95
== END 2024-02-24 16:33 | disposition home or self-care (01) ==
PROVIDERS: Emergency Provider Nurse Practitioner Family; PCP Nurse Practitioner
DX: H66.003 Acute suppurative otitis media without spontaneous rupture of ear drum, bilateral (principal); R50.9 Fever, unspecified
CPT/HCPCS: 87581; 87632; 87635; 87798; 99212; 99214; G0463

== ENCOUNTER 2024-07-19 17:21 | Emergency (ER) | payer SELFPAY ==
[2024-07-19 17:44] VITALS: BP 139/84; PULSE 103; RESP 18; TEMP 36.7; O2SAT 95; BMI 37.2
--- NOTE | 2024-07-19 17:49 | EXP.UTC ---
Discharge Plan Disposition Patient Disposition: Home, Self-Care Condition: Good Prescriptions Prescriptions: New amoxicillin 875 mg tablet 875 mg PO Q12H Qty: 20 0RF methylprednisolone 4 mg Tablets,Dose Pack 4 mg PO DIRECTED 6 Days Qty: 21 0RF Rx Instructions: Take 1 pack as directed for 6 days fxmavrbakprgntw-yowsajvzs-VD [Bromfed DM] 2-30-10 mg/5 mL Syrup 5 ml PO Q6H PRN (Reason: Cough) Qty: 240 0RF Referrals Follow up/Referrals: Li Tripp APRN [Primary Care Provider] - See instructions Activity Restrictions/Add. Instructions Additional Instructions/Restrictions: Drink plenty of fluids. Take tylenol for pain or fever. Take the medications as directed. Follow up with your regular doctor. GO TO THE ER FOR ANY WORSENING SYMPTOMS Clinical Impressions Clinical Impression: Bronchitis Sinusitis Qualifiers: Sinusitis location: unspecified location Chronicity: unspecified Qualified Code(s): J32.9 - Chronic sinusitis, unspecified Otitis media Qualifiers: Otitis media type: suppurative Chronicity: acute Laterality: bilateral Recurrence: non-recurrent Spontaneous tympanic membrane rupture: without spontaneous rupture Qualified Code(s): H66.003 - Acute suppurative otitis media without spontaneous rupture of ear drum, bilateral Stand Alone Forms Stand Alone Forms: Work/School Release Instructions Patient Instructions: Sinusitis, DI for Sinusitis Print Language Print Language: Scottish Discharge ED Provider: Rajiv Li [facility] General Stated complaint: crissy, no smell, ear ache Mode of Arrival: Ambulatory Source of Information: Patient Time Seen by Provider: 07/19/24 17:48 Description of Symptoms (Recalled from Triage Doc. by RN): SINUS PRESSURE, COUGH, EAR PAIN, CONGESTION, HANDS BROKE OUT HEENT Symptoms (Recalled from RN notes): Yes Resp Symptoms (Recalled from RN notes): Yes Skin Symptoms (Recalled from RN notes): Yes MS Symptoms (Recalled from RN notes): No Functional Status (Recalled from RN notes): WNL Related Data Previous Rx's ?Medication ?Instructions ?Recorded amoxicillin 875 mg tablet 875 mg PO Q12H #20 tabs 07/19/24 ngqxnpxtzaguhcp-yjqzjsogquktafu-JR 5 ml PO Q6H PRN Cough #240 mL 07/19/24 2 mg-30 mg-10 mg/5 mL oral syrup (Bromfed DM) methylprednisolone 4 mg tablets in 4 mg PO DIRECTED 6 days #21 tabs 07/19/24 a dose pack Allergies Allergy/AdvReac Type Severity Reaction Status Date / Time Cephalosporins Allergy Verified 05/13/23 17:44 lemon Allergy Verified 05/13/23 17:44 Worker's Comp Is this a Worker's Comp case?: No [facility] Disclaimer: The information contained in this section may have been updated after the patient was seen, as this information can be updated by other users. Medical History (Updated 07/19/24 @ 18:56 by Rajiv Li APRN) Kidney stone Asthma Surgical History History of removal of cyst History of tympanostomy tube placement History of tonsillectomy Social History Smoking Status: Never smoker alcohol intake: never current occupational status: employed Travel in the last 8 weeks: None Have you lived/traveled outside [place] in past 30 days?: No Contact w/someone who lives/traveled outside US past 30 days?: No Exposure to someone with infectious disease in past 14 days?: No Do you have a fever (greater than 100.4 F or 38 C)?: No Have you tested positive for COVID-19: No Exposed to someone with COVID-19 in past 14 days?: No Do you have a sore throat?: No Do you have a cough?: Yes Do you have any weakness?: No Do you have any diarrhea?: No Are you experiencing any unusual bleeding?: No Do you have any muscle aches/pain?: No Do you have any abdominal pain?: No Are you experiencing loss of taste or smell?: Yes ROS Obtained: Yes All systems reviewed & no additional complaints except as documented Constitutional Constitutional: Reports poor appetite Eyes Eyes: Reports system reviewed and no additional complaints, except as documented ENT Ears, Nose, Mouth, and Throat: Reports as per HPI Cardiovascular Cardiovascular: Reports system reviewed and no additional complaints, except as documented and Denies chest pain Respiratory Respiratory: Denies shortness of breath, Denies chest congestion, Reports cough, Denies stridor and Denies wheezing Gastrointestinal Gastrointestingal: Reports system reviewed and no additional complaints, except as documented; Denies abdominal pain, diarrhea or vomiting Musculoskeletal Musculoskeletal: Reports system reviewed and no additional complaints, except as documented and Denies arthralgias Integumentary/Breasts Skin/Breast: Reports system reviewed and no additional complaints, except as documented and Denies rash Neurologic Neurologic: Denies paresthesias Allergic/Immunologic Allergic/Immunologic: Denies wheezing Physical Exam General General appearance: alert and in no apparent distress Head Head exam: atraumatic, normocephalic and normal inspection Eye Eye exam: Present normal appearance, PERRL and EOMI ENT ENT exam: Present normal exam, normal oropharynx, mucous membranes moist, TM's normal bilaterally and normal external ear exam Neck Neck exam: Present normal inspection, full ROM and trachea midline; Absent meningismus or lymphadenopathy Chest Chest inspection: Present normal inspection and symmetric chest wall rise; Absent tenderness Respiratory Respiratory exam: Present normal lung sounds bilaterally; Absent respiratory distress Cardiovascular Cardiovascular exam: Present regular rate and normal rhythm; Absent JVD Abdominal Exam Abdominal exam: Present soft and normal bowel sounds; Absent distention, tenderness or guarding Extremities Exam Extremities exam: Present normal inspection, full ROM and normal capillary refill; Absent calf tenderness Back Exam Back exam: Present normal inspection; Absent tenderness Neurological Exam Neurological exam: Present alert and oriented X3 Psychiatric Psychiatric exam: Present normal affect and normal mood Skin Skin exam: Present warm, dry, intact and normal color Lymphatic Lymphatic Findings: no adenopathy Medical Decision Making Medical Records Medical records reviewed: No I reviewed the patient's medical records. Screening: Per USPSTF and CDC recommendations, given the prevalence of disease in our region, it is our hospital?s policy to screen for HIV and viral Hepatitis for all patients aged 18 and over and those with ongoing risk factors. Marquis Inquiry Pt receiving controlled substance: No Vital Signs: 07/19/24 17:44 Temperature 98.0 F Temperature Source Oral Pulse Rate [Left Radial] 103 H Respiratory Rate 18 Blood Pressure [Left Arm] 139/84 Blood Pressure Mean [Left Arm] 102 02 Sat by Pulse Oximetry 95
[2024-07-19 19:03] LABS: Coronavirus 19, PCR Not Detected (NotDetected); Influenza A, PCR Not Detected (NotDetected); Influenza B, PCR Not Detected (NotDetected)
[2024-07-19 19:13] VITALS: BP 139/84; PULSE 103; RESP 18; TEMP 36.7
== END 2024-07-19 19:13 | disposition home or self-care (01) ==
PROVIDERS: Emergency Provider Nurse Practitioner Family; PCP Nurse Practitioner
DX: J40 Bronchitis, not specified as acute or chronic (principal); J32.9 Chronic sinusitis, unspecified
CPT/HCPCS: 87636; 99213; G0381

== ENCOUNTER 2024-08-23 09:08 | Emergency (ER) | payer SELFPAY ==
[2024-08-23] VITALS (9 sets, daily range): BP systolic 104–155; BP diastolic 72–128; PULSE 82–112; RESP 14–18; TEMP 36.6–36.8; O2SAT 96–100; BMI 31.8
--- NOTE | 2024-08-23 09:13 | ED_ITS ---
Discharge Plan Disposition Patient Disposition: Home, Self-Care Condition: Good Prescriptions Prescriptions: New ketorolac 10 mg tablet 10 mg PO Q8H PRN (Reason: pain) 10 Days Qty: 14 0RF No Action amoxicillin 875 mg tablet 875 mg PO Q12H Qty: 20 0RF methylprednisolone 4 mg Tablets,Dose Pack 4 mg PO DIRECTED 6 Days Qty: 21 0RF Rx Instructions: Take 1 pack as directed for 6 days hfyihsowcwrkgit-smhkvyxwd-IB [Bromfed DM] 2-30-10 mg/5 mL Syrup 5 ml PO Q6H PRN (Reason: Cough) Qty: 240 0RF Referrals Follow up/Referrals: Li Tripp APRN [Primary Care Provider] - See instructions Activity Restrictions/Add. Instructions Additional Instructions/Restrictions: Please bear weight as tolerated, and use rest, ice, elevation, compression such as an Gregory wrap on your ankle to help treat your symptoms. Please follow-up with either your primary care doctor or an orthopedic doctor. Please return with any new or worsening symptoms. Clinical Impressions Clinical Impression: Injury of ankle, left Stand Alone Forms Stand Alone Forms: Work/School Release Print Language Print Language: French Discharge ED Provider: Mateo Carbajal General Adult HPI General Chief complaint: Extremity Injury, Lower Stated complaint: WC- Fall-Pain and swelling L ankle Time Seen by Provider: 08/23/24 09:13 History of Present Illness HPI narrative: Patient presents for evaluation of lateral ankle pain after fall from standing shortly prior to arrival today. She describes difficulty with ambulation. No numbness or tingling or injury elsewhere. Injury is closed. She did not lose consciousness. She was in her normal state of health prior to onset of symptoms. No pain elsewhere. Please note that above description of symptoms, in this electronic medical record under categorization of recalled from ER triage doctor by RN are reflective of an initial nursing assessment, however, is not reflective of my full history and physical exam that was personally taken and clarified. Consequentially, this preceding description of symptoms, which may include the patient's categorized chief complaint in the EMR, do not reflect my personal clinical impression, and the ultimate description of history of present illness and patient stated complaints should be deferred to this section of the note. Unless stated otherwise or congruent with this section of the note, additional signs, symptoms, or incongruence should be interpreted as inaccurate with my clinical impression. Related Data Previous Rx's ?Medication ?Instructions ?Recorded amoxicillin 875 mg tablet 875 mg PO Q12H #20 tabs 07/19/24 wiilotwdikmpqbq-cjduqnbxhyfrqrv-AF 5 ml PO Q6H PRN Cough #240 mL 07/19/24 2 mg-30 mg-10 mg/5 mL oral syrup (Bromfed DM) methylprednisolone 4 mg tablets in 4 mg PO DIRECTED 6 days #21 tabs 07/19/24 a dose pack ketorolac 10 mg tablet 10 mg PO Q8H PRN pain 10 days #14 08/23/24 tabs Allergies Allergy/AdvReac Type Severity Reaction Status Date / Time Cephalosporins Allergy Hives Verified 08/23/24 09:40 lemon Allergy Unknown Verified 08/23/24 09:40 allergy reaction PFSH [facility] Disclaimer: The information contained in this section may have been updated after the patient was seen, as this information can be updated by other users. Medical History (Updated 08/23/24 @ 10:54 by Mateo Carbajal MD) Kidney stone Asthma Surgical History History of removal of cyst History of tympanostomy tube placement History of tonsillectomy Social History Smoking Status: Never smoker alcohol intake: never current occupational status: employed Travel in the last 8 weeks: None Have you lived/traveled outside US in past 30 days?: No Contact w/someone who lives/traveled outside US past 30 days?: No Exposure to someone with infectious disease in past 14 days?: No Do you have a fever (greater than 100.4 F or 38 C)?: No Have you tested positive for COVID-19: No Exposed to someone with COVID-19 in past 14 days?: No Do you have a sore throat?: No Do you have a cough?: No Do you have any weakness?: No Do you have any diarrhea?: No Are you experiencing any unusual bleeding?: No Do you have any muscle aches/pain?: No Do you have any abdominal pain?: No Are you experiencing loss of taste or smell?: No Other Medical History Have you received the Flu Vaccine for this season: No Have you received the Pneumonia Vaccine: No ROS Obtained: Yes other As per HPI Physical Exam General General appearance: alert and in no apparent distress Head Head exam: atraumatic and normocephalic Eye Eye exam: Present normal appearance Neck Neck exam: Present normal inspection Chest Chest inspection: Present normal inspection and symmetric chest wall rise Respiratory Respiratory exam: Present normal lung sounds bilaterally; Absent respiratory distress Cardiovascular Cardiovascular exam: Present regular rate and normal rhythm Abdominal Exam Abdominal exam: Present soft Neurological Exam Neurological exam: Present alert and oriented X3 Psychiatric Psychiatric exam: Present normal affect and normal mood Skin Skin exam: Present warm and dry Other Other exam information: Left lateral malleoli tenderness to palpation Medical Decision Making Medical Records Medical records reviewed: Yes I reviewed the patient's medical records. Screening: Per USPSTF and CDC recommendations, given the prevalence of disease in our region, it is our hospital?s policy to screen for HIV and viral Hepatitis for all patients aged 18 and over and those with ongoing risk factors. Marquis Inquiry Pt receiving controlled substance: No Vital Signs: 08/23/24 09:15 08/23/24 09:17 08/23/24 09:23 Temperature 98.2 F Temperature Source Oral Pulse Rate 112 H 106 H Pulse Rate [Left] 105 H Respiratory Rate 14 Blood Pressure 155/128 H 123/72 Blood Pressure [Right Arm] 123/72 Blood Pressure Mean [Right Arm] 89 Blood Pressure Source [Right Arm] Automatic Cuff Blood Pressure Position [Right Arm] Sitting 02 Sat by Pulse Oximetry 98 98 97 Oxygen Delivery Method Room Air Room Air Room Air 08/23/24 09:30 08/23/24 10:00 08/23/24 10:30 Temperature Temperature Source Pulse Rate 105 H 82 92 H Pulse Rate [Left] Respiratory Rate Blood Pressure 104/80 L 114/74 131/79 Blood Pressure [Right Arm] Blood Pressure Mean [Right Arm] Blood Pressure Source [Right Arm] Blood Pressure Position [Right Arm] 02 Sat by Pulse Oximetry 96 96 96 Oxygen Delivery Method Room Air Room Air Room Air 08/23/24 11:01 08/23/24 11:23 08/23/24 11:28 Temperature 98 F 98.2 F Temperature Source Pulse Rate 101 H 89 101 H Pulse Rate [Left] Respiratory Rate 16 18 Blood Pressure 109/77 L 110/73 109/77 L Blood Pressure [Right Arm] Blood Pressure Mean [Right Arm] Blood Pressure Source [Right Arm] Blood Pressure Position [Right Arm] 02 Sat by Pulse Oximetry 97 Oxygen Delivery Method Room Air Room Air Room Air Orders (Tests/Meds): ED MEDICATIONS Discontinued Medications Generic Name Dose Route Start Last Admin Trade Name Freq PRN Reason Stop Dose Admin Ketorolac Tromethamine 30 mg 08/23/24 09:22 08/23/24 09:41 Ketorolac 30mg/Ml Vial IM 08/23/24 09:23 30 mg ONCE ONE Administration ORDERS Category Date Time Status Foot XR left minimum 3 views [XR foot LT min 3V] Stat Exams 08/23/24 09:22 Completed XR ankle LT min 3V Stat Exams 08/23/24 09:22 Completed Medical Decision Narrative: Patient with history and exam per above presenting for evaluation of ankle injury Diagnoses considered include fracture, sprain, strain, no clinical evidence of vascular injury nerve injury or injury elsewhere ED workup and treatment included: ED MEDICATIONS Discontinued Medications Generic Name Dose Route Start Last Admin Trade Name Freq PRN Reason Stop Dose Admin Ketorolac Tromethamine 30 mg 08/23/24 09:22 08/23/24 09:41 Ketorolac 30mg/Ml Vial IM 08/23/24 09:23 30 mg ONCE ONE Administration ORDERS Category Date Time Status Foot XR left minimum 3 views [XR foot LT min 3V] Stat Exams 08/23/24 09:22 Co mpleted XR ankle LT min 3V Stat Exams 08/23/24 09:22 Completed Imaging was independently visualized and interpreted by me, significant for no acute osseous abnormality Please refer to radiology report for full details. My clinical impression at this time is most consistent with soft tissue injury of ankle I discussed my clinical impression with patient and answered all questions. At this time, the evidence for any other entities in the differential is insufficient to warrant any further testing or ED observation. This was explained to the patient. The patient was advised that persistent or worsening symptoms require further evaluation. Critical Care Critical Care Time Critical Care Time: No
--- NOTE | 2024-08-23 09:22 | XR_ITS ---
FINAL REPORT CLINICAL HISTORY: closed foot injury, fall from standing COMPARISON: 06/29/2022 FINDINGS: LEFT FOOT Three views of the left foot demonstrate no acute fracture or dislocation. The visualized joint spaces are normally aligned. The soft tissues are unremarkable. IMPRESSION: No acute bony abnormality. Reviewed, Interpreted and Dictated by Don Cho MD Transcribed by Nora Fink Authenticated and . [facility]
--- NOTE | 2024-08-23 09:22 | XR_ITS ---
FINAL REPORT CLINICAL HISTORY: ankle injury, fall from standing COMPARISON: 06/29/2022 FINDINGS: LEFT ANKLE Three views demonstrate no acute fracture or dislocation. There are well-corticated ossific densities noted with a 6 mm focus anterior to the ankle mortise and a 7 mm focus superior to the talus which probably represent sequela from old trauma. The visualized joint spaces are normally aligned. The soft tissues are unremarkable. IMPRESSION: No acute bony abnormality. Reviewed, Interpreted and Dictated by Don Cho MD Transcribed by Nora Fikn Authenticated and [facility]
[2024-08-23] MEDS: KETOROLAC 30MG/ML VIAL 30 MG IM (09:41)
--- NOTE | 2024-08-23 10:39 | PC.NURSE ---
Dr. Carbajal is speaking with the radiologist about the results of his imaging.
== END 2024-08-23 11:34 | disposition home or self-care (01) ==
PROVIDERS: Emergency Provider Emergency Medicine; PCP Nurse Practitioner
DX: S99.912A Unspecified injury of left ankle, initial encounter (principal); M25.572 Pain in left ankle and joints of left foot; M79.672 Pain in left foot; W19.XXXA Unspecified fall, initial encounter
CPT/HCPCS: 73610; 73630; 96372; 99283; J1885

== ENCOUNTER 2024-09-10 06:43 | Emergency (ER) | payer SELFPAY ==
[2024-09-10] VITALS (8 sets, daily range): BP systolic 115–140; BP diastolic 57–94; PULSE 69–91; RESP 16–17; TEMP 36.6–36.8; O2SAT 96–99; BMI 37.2
--- NOTE | 2024-09-10 07:26 | ED_ITS ---
Discharge Plan Disposition Patient Disposition: Home, Self-Care Prescriptions Prescriptions: No Action ketorolac 10 mg tablet 10 mg PO Q8H PRN (Reason: pain) 10 Days Qty: 14 0RF amoxicillin 875 mg tablet 875 mg PO Q12H Qty: 20 0RF methylprednisolone 4 mg Tablets,Dose Pack 4 mg PO DIRECTED 6 Days Qty: 21 0RF Rx Instructions: Take 1 pack as directed for 6 days [id number] [Bromfed DM] 2-30-10 mg/5 mL Syrup 5 ml PO Q6H PRN (Reason: Cough) Qty: 240 0RF Referrals Follow up/Referrals: Analisa Borden DO [Staff Physician] - See instructions Li Tripp APRN [Primary Care Provider] - See instructions Activity Restrictions/Add. Instructions Additional Instructions/Restrictions: Please call today to make next available appoint with [facility] and return with any significant worsening of your symptoms. No evidence of any emergent medical condition identified today. Clinical Impressions Clinical Impression: Abnormal uterine bleeding Print Language Print Language: Bruneian Discharge ED Provider: Milka Randolph General Adult HPI General Chief complaint: Vaginal Bleeding Stated complaint: heavy period, cramping Time Seen by Provider: 09/10/24 07:18 Mode of Arrival: Ambulatory Source of Information: Patient Limitations: No Limitations Description of Symptoms (Recalled from ER Triage Doc. by RN): Pt states she has hx of PCOS and having heavy period with cramping States she is using 2 pads per hour for past few days History of Present Illness HPI narrative: Patient is a 29-year-old with a history of PCOS presenting today with heavy and painful periods. She states that she has normally been very irregular and was diagnosed at the age of 15 and had been on oral contraceptives at that time but continued to bleed and stopped them. Over the last week she states she has been bleeding but became very heavy in the last 24 hours. She states that she is bleeding through a pad every 30 minutes. She denies any symptoms currently shortness of breath lightheadedness chest pain etc. Has never been anemic in the past and denies needing transfusions in the past. Related Data Previous Rx's ?Medication ?Instructions ?Recorded amoxicillin 875 mg tablet 875 mg PO Q12H #20 tabs 07/19/24 cicypghbexsfoxd-tuvksnxqubxzayw-UL 5 ml PO Q6H PRN Cough #240 mL 07/19/24 2 mg-30 mg-10 mg/5 mL oral syrup (Bromfed DM) methylprednisolone 4 mg tablets in 4 mg PO DIRECTED 6 days #21 tabs 07/19/24 a dose pack ketorolac 10 mg tablet 10 mg PO Q8H PRN pain 10 days #14 08/23/24 tabs Allergies Allergy/AdvReac Type Severity Reaction Status Date / Time Cephalosporins Allergy Hives Verified 08/23/24 09:40 lemon Allergy Unknown Verified 08/23/24 09:40 allergy reaction PFSH [facility] Disclaimer: The information contained in this section may have been updated after the patient was seen, as this information can be updated by other users. Medical History (Updated 09/10/24 @ 07:25 by Milka Randolph MD) Kidney stone Asthma Surgical History History of removal of cyst History of tympanostomy tube placement History of tonsillectomy Social History Smoking Status: Never smoker alcohol intake: never current occupational status: employed Travel in the last 8 weeks: None Have you lived/traveled outside US in past 30 days?: No Contact w/someone who lives/traveled outside US past 30 days?: No Exposure to someone with infectious disease in past 14 days?: No Do you have a fever (greater than 100.4 F or 38 C)?: No Have you tested positive for COVID-19: No Exposed to someone with COVID-19 in past 14 days?: No Do you have a sore throat?: No Do you have a cough?: No Do you have any weakness?: No Do you have any diarrhea?: No Are you experiencing any unusual bleeding?: No Do you have any muscle aches/pain?: No Do you have any abdominal pain?: No Are you experiencing loss of taste or smell?: No Other Medical History Have you received the Flu Vaccine for this season: No Have you received the Pneumonia Vaccine: No ROS Obtained: Yes All systems reviewed & no additional complaints except as documented Physical Exam General General appearance: alert Respiratory Respiratory exam: Present normal lung sounds bilaterally Cardiovascular Cardiovascular exam: Present regular rate and normal rhythm Abdominal Exam Abdominal exam: Present soft; Absent distention or tenderness Neurological Exam Neurological exam: Present alert and oriented X3 Medical Decision Making Medical Records Screening: Per USPSTF and CDC recommendations, given the prevalence of disease in our region, it is our hospital?s policy to screen for HIV and viral Hepatitis for all patients aged 18 and over and those with ongoing risk factors. Marquis Inquiry Pt receiving controlled substance: No Vital Signs: 09/10/24 06:48 09/10/24 07:00 09/10/24 07:30 Temperature 97.9 F Temperature Source Oral Pulse Rate 87 86 Pulse Rate [Right Brachial] 91 H Respiratory Rate 16 Blood Pressure 122/84 130/86 Blood Pressure [Right Arm] 140/90 Blood Pressure Mean [Right Arm] 106 Blood Pressure Source [Right Arm] Automatic Cuff Blood Pressure Position [Right Arm] Sitting 02 Sat by Pulse Oximetry 99 98 98 Oxygen Delivery Method Room Air Room Air Room Air 09/10/24 07:56 09/10/24 08:00 09/10/24 08:30 Temperature Temperature Source Pulse Rate 90 74 81 Pulse Rate [Right Brachial] Respiratory Rate Blood Pressure 119/80 115/57 L 126/84 Blood Pressure [Right Arm] Blood Pressure Mean [Right Arm] Blood Pressure Source [Right Arm] Blood Pressure Position [Right Arm] 02 Sat by Pulse Oximetry 97 96 98 Oxygen Delivery Method Room Air Room Air Room Air Lab Data Lab results reviewed: Yes I reviewed the patient's lab results. Lab Results 09/10/24 07:50: WBC 10.3, RBC 4.48, Hgb 13.2, Hct 39.8, MCV 88.8, MCH 29.5, MCHC 33.2, RDW 13.2, Plt Count 315, MPV 9.9, Neut % (Auto) 73.2, Lymph % (Auto) 18.9, Vance % (Auto) 4.9, Eos % (Auto) 2.2, Baso % (Auto) 0.5, Neut # (Auto) 7.5, Lymph # (Auto) 1.9, Vance # (Auto) 0.5, Eos # (Auto) 0.2, Baso # (Auto) 0.1, PT 10.1, INR 0.91, APTT 27.3, Sodium 140, Potassium 3.6, Chloride 104, Carbon Dioxide 27, Anion Gap 12.6, BUN 15, Creatinine 0.70, Estimated Creat Clear 182, Estimated GFR 100, Est GFR ( Amer) 121, Glucose 114 H, Calcium 8.9, Total Bilirubin 0.2, AST 43 H, ALT 51, Alkaline Phosphatase 85, Total Protein 7.3, Albumin 4.5, Globulin 2.8, Albumin/Globulin Ratio 1.6, TSH 1.29, Serum HCG, Qual Negative 09/10/24 07:50 09/10/24 07:50 Orders (Tests/Meds): ED MEDICATIONS Discontinued Medications Generic Name Dose Route Start Last Admin Trade Name Freq PRN Reason Stop Dose Admin Ketorolac Tromethamine 15 mg 09/10/24 07:24 09/10/24 08:06 Ketorolac 30mg/Ml Vial IV 09/10/24 07:25 15 mg ONCE ONE Administration ORDERS Category Date Time Status CBC w/Auto Diff [Complete Blood Count Auto Diff] Stat Lab 09/10/24 07:50 Completed CMP [Comprehensive Metabolic Panel] Stat Lab 09/10/24 07:50 Completed HCG Qualitative, Serum Stat Lab 09/10/24 07:50 Completed HIV Combo Routine Lab 09/10/24 07:50 Received Hepatitis C Ab Qual. W/ RFX Routine Lab 09/10/24 07:50 Received PT/PTT Stat Lab 09/10/24 07:50 Completed TSH [Thyroid Stimulating Hormone] Stat Lab 09/10/24 07:50 Completed Medical Decision Narrative: 29-year-old with above history and physical has a benign exam vital signs normal. Abdominal exam is benign. Most likely this is dysfunctional uterine bleeding or abnormal uterine bleeding secondary to hormone dysfunction. Will check some basic blood work make sure H&H is normal. She has no signs or symptoms of any type of bleeding dyscrasia or systemic coagulopathy. NSAID will be given for her cramping which may help with bleeding a little bit as well. Ultimately she will likely need to be on hormone therapy but will have her follow-up with [facility] if her labs are stable. Reassessment 905 patient remains very stable hemodynamically labs unremarkable aside from mildly elevated AST which is likely secondary to fatty infiltration and inflammation. This was discussed with the patient. She will follow-up closely with [facility] and likely to be started on hormone therapy. Referral to Dr. Dinero has been given. Critical Care Critical Care Time Critical Care Time: No
--- NOTE | 2024-09-10 07:39 | PC.NURSE ---
I ambulated pt to the bathroom.
[2024-09-10 08:06] LABS: Basophils # 0.1 K/mm3 (0-0.2); Basophils % 0.5 % (0.1-2.0); Eosinophils # 0.2 K/mm3 (0.0-0.4); Eosinophils % 2.2 % (0.1-12.0); Hematocrit 39.8 % (37.0-47.0); Hemoglobin 13.2 g/dL (12.2-16.2); Lymphocytes # 1.9 K/mm3 (0.7-4.5); Lymphocytes % 18.9 % (10-50); Mean Corpuscular HGB Conc 33.2 g/dL (31.8-35.4); Mean Corpuscular Hemoglobin 29.5 pg (27.0-31.2); Mean Corpuscular Volume 88.8 fl (81-99); Mean Platelet Volume 9.9 fl (7.4-10.4); Monocytes # 0.5 K/mm3 (0.1-1.0); Monocytes % 4.9 % (1.7-9.3); Neutrophils # 7.5 K/mm3 (1.8-7.8); Neutrophils % 73.2 % (37.0-80.0); Platelet Count 315 K/mm3 (142-424); Red Blood Count 4.48 M/mm3 (4.20-5.40); Red Cell Distribution Width 13.2 % (11.5-17.5); White Blood Count 10.3 K/mm3 (4.8-10.8)
[2024-09-10] MEDS: KETOROLAC 30MG/ML VIAL 15 MG IV (08:06)
[2024-09-10 08:16] LABS: Albumin Level 4.5 g/dl (3.5-5.0); Chloride 104 mmol/L (98-107); Potassium 3.6 mmoL/L (3.5-5.1); Sodium 140 mmol/L (136-145)
[2024-09-10 08:19] LABS: Alanine Aminotransferase 51 U/L (12-78); Albumin/Globulin Ratio 1.6 (1.1-1.8); Alkaline Phosphatase 85 U/L (38-126); Anion Gap 12.6 mEq/L (5-15); Aspartate Amino Transferase 43 U/L (14-36); Bilirubin,Total 0.2 mg/dl (0.2-1.3); Blood Urea Nitrogen 15 mg/dl (7-17); Carbon Dioxide 27 mmol/L (22.0-30.0); Creatinine Clearance Estimated 182 mL/min (50-200); Estimated Glomerular Filt Rate 100 ml/min (>60); GFR (African American) 121 ML/MIN (>60); Globulin 2.8 g/dL (1.3-3.2); Total Protein,Serum 7.3 g/dl (6.3-8.2)
[2024-09-10 08:20] LABS: Calcium 8.9 mg/dl (8.4-10.2); Glucose 114 mg/dl (74-100)
--- NOTE | 2024-09-10 08:26 | PC.NURSE ---
I rounded on the pt. no new complaints at this tme. no needs voiced. call lira in reach.
[2024-09-10 08:33] LABS: Activated Partial Thrombo Time 27.3 seconds (22.5-28.5); INR 0.91 (0.9-1.1); Prothrombin Time 10.1 seconds (9.2-12.1)
[2024-09-10 08:46] LABS: HCG Qualitative, Serum Negative (Negative)
[2024-09-10 08:50] LABS: Thyroid Stimulating Hormone 1.29 uIU/mL (0.465-4.68)
--- NOTE | 2024-09-10 09:04 | PC.NURSE ---
I rounded on the pt. no needs voiced. call lira in reach.
[2024-09-10 09:29] LABS: HIV Combo NEGATIVE (Negative)
[2024-09-10 09:36] LABS: Hepatitis C Ab Qual. W/ RFX NEGATIVE (Negative)
== END 2024-09-10 09:09 | disposition home or self-care (01) ==
PROVIDERS: Emergency Medicine; Emergency Provider Student in an Organized Health Care Education/Training Program; PCP Nurse Practitioner
DX: N93.9 Abnormal uterine and vaginal bleeding, unspecified (principal)
CPT/HCPCS: 80053; 84443; 84703; 85025; 85610; 85730; 86803; 87389; 96374; 99283; J1885

== ENCOUNTER 2024-12-14 21:13 | Emergency (ER) | payer OTHER, SELFPAY ==
[2024-12-14 21:16] VITALS: BP 138/96; PULSE 68; RESP 18; TEMP 36.6; O2SAT 100; BMI 37.3
[2024-12-14 21:27] VITALS: BP 138/96; PULSE 68; RESP 18; TEMP 36.6; O2SAT 100
--- NOTE | 2024-12-14 21:29 | ED_ITS ---
<Statement entered by Mandy Cage DO - 12/14/24 23:15> I was consulted by the JEN, and we discussed the complexity of the problems being addressed. I approved the treatment and management plan for this patient's care in the emergency department, thus performing a substantive portion of the medical decision making. Mandy Cage DO Discharge Plan Disposition Patient Disposition: Home, Self-Care Condition: Good Chief Complaint: Extremity Injury, Upper Prescriptions Prescriptions: No Action levocetirizine [Xyzal] 5 mg tablet 5 mg PO DAILY Referrals Follow up/Referrals: Li Tripp APRN [Primary Care Provider] - See instructions Dale Powell DO [Staff Physician] - See instructions Activity Restrictions/Add. Instructions Additional Instructions/Restrictions: Please utilize ibuprofen and Tylenol as needed for symptomatic relief, please wear your brace at night and when doing repetitive movements, please follow-up with orthopedic provider if symptoms persist, could evaluate with MRI, nerve conduction studies and potential steroid injections if symptomatology persist. Please return to the emerged part with any worsening signs or symptoms. Clinical Impressions Clinical Impression: Tenosynovitis of finger, Tenosynovitis of left wrist Instructions Patient Instructions: DI for Carpal Tunnel Syndrome, DI for De Quervaine Tenosynovitis Print Language Print Language: Kyrgyz Discharge ED Provider: Mandy Cage General Adult HPI General Chief complaint: Extremity Injury, Upper Stated complaint: Left thumb pain radiating up arm Time Seen by Provider: 12/14/24 21:21 Mode of Arrival: Ambulatory Source of Information: Patient Description of Symptoms (Recalled from ER Triage Doc. by RN): Pt states she has had left thumb up to her elbow pain for approx 3 days. Pt denies any injury. History of Present Illness HPI narrative: 29-year-old female presents emergency department with left hand hallux pain, that will radiate up into the forearm, as well as associated numbness and tingling within the 1st through 3rd digits on the left hand at times. Most often when she wakes up in the morning , she denies any fever chills chest pain shortness of breath nausea vomiting constipation diarrhea, no neck pain, no u rinary type symptomatology, no radicular type symptomatology, he has no upper or lower extremity weakness, denies any trauma injury or inciting event, she has no other real relevant past medical history takes no other medications at home, does have remote history of what sounds like ganglion cyst removal of the left hand as a child. 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 Initial triage vitals unremarkable. Onset (ago): day(s) Related Data Home Medications ?Medication ?Instructions ?Recorded ?Confirmed levocetirizine 5 mg tablet (Xyzal) 5 mg PO DAILY 09/26/24 09/26/24 Allergies Allergy/AdvReac Type Severity Reaction Status Date / Time Cephalosporins Allergy Hives Verified 09/26/24 10:55 lemon Allergy Unknown Verified 09/26/24 10:55 allergy reaction [facility] Disclaimer: The information contained in this section may have been updated after the patient was seen, as this information can be updated by other users. Medical History Kidney stone Asthma Surgical History History of removal of cyst History of tympanostomy tube placement History of tonsillectomy Family History (Updated 09/26/24 @ 11:04 by ROBYN Buck) Other Cancer Social History Smoking Status: Never smoker alcohol intake: never current occupational status: employed Travel in the last 8 weeks?: None Have you lived/traveled outside US in past 30 days?: No Contact w/someone who lives/traveled outside US past 30 days?: No Exposure to someone with infectious disease in past 14 days?: No Do you have a fever (greater than 100.4 F or 38 C)?: No Have you tested positive for COVID-19?: No Exposed to someone with COVID-19 in past 14 days?: No Do you have a sore throat?: No Do you have a cough?: No Do you have any weakness?: No Do you have any diarrhea?: No Are you experiencing any unusual bleeding?: No Do you have any muscle aches/pain?: No Do you have any abdominal pain?: No Are you experiencing loss of taste or smell?: No Other Medical History Have you received the Flu Vaccine for this season: No Have you received the Pneumonia Vaccine: No ROS Obtained: Yes All systems reviewed & no additional complaints except as documented Physical Exam General General appearance: alert and in no apparent distress Head Head exam: atraumatic and normocephalic Eye Eye exam: Present PERRL and EOMI ENT ENT exam: Present mucous membranes moist Neck Neck exam: Present normal inspection Chest Chest inspection: Present normal inspection and symmetric chest wall rise Respiratory Respiratory exam: Present normal lung sounds bilaterally; Absent respiratory distress Cardiovascular Cardiovascular exam: Present regular rate and normal rhythm Abdominal Exam Abdominal exam: Present soft; Absent tenderness Extremities Exam Extremities exam: Present normal inspection, tenderness and other; Absent edema or joint swelling Expanded Upper Extremity Exam Left: Hand exam: Present normal inspection, full ROM, tenderness and other (Positive Climax's test, positive Phalen's test, positive Pankaj test and pain over the dorsal hallux region, otherwise good finger opposition and otherwise neurovascular intact, no obvious acute deformity or dislocation is present, patient has good range of motion to the thumb,); Absent swelling, deformity or crepitus Neuromotor exam: Normal wrist extension, thumb opposition, thumb adduction and fingers 2-5 abduction Neurosensory exam: Normal median nerve Vascular exam: Normal capillary refill, radial pulse and ulnar pulse Neurological Exam Neurological exam: Present alert and oriented X3 Psychiatric Psychiatric exam: Present normal affect Skin Skin exam: Present warm and dry Medical Decision Making Medical Records Medical records reviewed: Yes I reviewed the patient's medical records. Screening: Per USPSTF and CDC recommendations, given the prevalence of disease in our region, it is our hospital?s policy to screen for HIV and viral Hepatitis for all patients aged 18 and over and those with ongoing risk factors. Marquis Inquiry Pt receiving controlled substance: No Marquis was queried for this patient: No Vital Signs: 12/14/24 21:16 12/14/24 21:27 Temperature 98 F 98 F Temperature Source Oral Oral Pulse Rate 68 Pulse Rate [Left] 68 Respiratory Rate 18 18 Blood Pressure 138/96 H Blood Pressure [Right Arm] 138/96 H Blood Pressure Mean [Right Arm] 110 Blood Pressure Source Automatic Cuff Blood Pressure Source [Right Arm] Automatic Cuff Blood Pressure Position Sitting 02 Sat by Pulse Oximetry 100 100 Oxygen Delivery Method Room Air Room Air Orders (Tests/Meds): ED MEDICATIONS Generic Name Dose Route Start Last Admin Trade Name Freq PRN Reason Stop Dose Admin Ibuprofen 600 mg 12/14/24 21:29 12/14/24 21:31 Ibuprofen 600 Mg Tablet PO 12/14/24 21:30 600 mg ONCE ONE Administration Medical Decision Narrative: 29-year-old female presents the emergency department with left thumb pain that radiates into the arm with associated numbness tingling at times, differential diagnose include but not limited to de Quervain's tenosynovitis, medial epicond ylitis, lateral epicondylitis, carpal tunnel syndrome, among others. I discussed patient case with infusion Dr. Cage I did offer imaging studies with plain film x-rays of the patient the bedside, she denied at this time would like to pursue outpatient treatment with bracing, shared decision-making was utilized, this is appropriate as plain film radiographs will provide no info with really no inciting event trauma or injury. Patient is otherwise neurovascularly intact, moves extremity to command, good opposition with the thumb and fingers, good thumb abduction and abduction, and normal range of motion of the thumb joints with some mild pain palpation over the area, as well as some numbness and tingling in the ulnar and median nerve distribution, positive Tinel's Phalen's test and Pankaj's test with a history of ganglion cyst removal to that area, make suspicious for either de Quervain's tenosynovitis, carpal tunnel syndrome versus a lateral epicondylitis as the patient's pain radiates into the arm. Recommend follow-up with orthopedic provider in the upcoming days, will give wrist brace with thumb spica splint as needed especially with repetitive movements and at night, patient was given strict ED return precautions, and 600 mg ibuprofen p.o. here in the emergency department for symptomatic relief, patient voiced understanding of the current treatment plan/discharge plan. Critical Care Critical Care Time Critical Care Time: No
[2024-12-14] MEDS: IBUPROFEN 600 MG TABLET PO (21:31)
[2024-12-14 21:43] VITALS: BP 133/80; PULSE 72; RESP 18; TEMP 37.2; O2SAT 99
== END 2024-12-14 21:53 | disposition home or self-care (01) ==
PROVIDERS: Emergency Provider Emergency Medicine; PCP Nurse Practitioner
DX: M65.932 Unspecified synovitis and tenosynovitis, left forearm (principal); M65.942 Unspecified synovitis and tenosynovitis, left hand; M79.645 Pain in left finger(s)
CPT/HCPCS: 99283

== ENCOUNTER 2025-03-15 21:13 | Emergency (ER) | payer OTHER, SELFPAY ==
[2025-03-15 21:23] VITALS: BP 160/93; PULSE 84; RESP 18; TEMP 36.9; O2SAT 97; BMI 37.3
[2025-03-15 21:33] LABS: Microscopic, Urine URINE MICROSCOPIC (MICROSCOPIC)
[2025-03-15 21:36] LABS: Bilirubin,Urine Negative (Negative); Color,Urine YELLOW (Yellow); Glucose,Urine (UA) Negative (Negative); Ketones,Urine TRACE (Negative); Leukocyte Esterase,Urine Negative (Negative); PH,Urine 6.5 (5.0-8.5); Protein,Urine Negative (Negative); Specific Gravity, Urine 1.020 (1.005-1.030); Urobilinogen,Urine 0.2 EU/dl (0.2)
[2025-03-15 21:41] LABS: Urine Pregnancy, HCG Qual. Negative (Negative)
[2025-03-15 21:49] VITALS: BP 136/83; PULSE 78; RESP 16; O2SAT 94
[2025-03-15 21:51] LABS: Bacteria,Urine 1+ /lpf
--- NOTE | 2025-03-15 22:12 | HMH.EDGENADL ---
Discharge Plan Disposition Patient Disposition: Home, Self-Care Prescriptions Prescriptions: No Action levocetirizine [Xyzal] 5 mg tablet 5 mg PO DAILY Referrals Follow up/Referrals: Josee (ED),ROLANDO Jefferson [Primary Care Provider, Emergency Medicine] - See instructions Activity Restrictions/Add. Instructions Additional Instructions/Restrictions: As discussed there is no obvious evidence of an internal or external ear infection. You did have possibly some slight fluid behind both tympanic membranes and with your recent congestion this could be eustachian tube dysfunction therefore I suggest that you take decongestants namely Sudafed. Also you are here for concern for possible urinary tract infection but your urinalysis was not consistent with UTI therefore antibiotics were not prescribed. Please follow-up with your primary care doctor return to the emergency department with any significant worsening of your symptoms. Clinical Impressions Clinical Impression: Acute pain of both ears, Eustachian tube dysfunction Print Language Print Language: Polish Discharge ED Provider: Milka Randolph General Adult HPI General Chief complaint: Ear Stated complaint: both ear pain, R ear hot, poss UTI Time Seen by Provider: 03/15/25 21:21 Mode of Arrival: Ambulatory Source of Information: Patient Description of Symptoms (Recalled from ER Triage Doc. by RN): pt to ED with c/o bilat ear pain, worse on the right x2 weeks. Pt also feels like she has a UTI because it has beenn burning when she urinates for 1 week. History of Present Illness HPI narrative: Patient is a 29-year-old female presenting with 2 complaints of bilateral ear pain that was preceded by congestion right greater than left no fevers or chills also feels like she has UTI because she has had some dysuria for a week. Related Data Home Medications ?Medication ?Instructions ?Recorded ?Confirmed levocetirizine 5 mg tablet (Xyzal) 5 mg PO DAILY 09/26/24 09/26/24 Allergies Allergy/AdvReac Type Severity Reaction Status Date / Time Cephalosporins Allergy Hives Verified 09/26/24 10:55 lemon Allergy Unknown Verified 09/26/24 10:55 allergy reaction [facility] Disclaimer: The information contained in this section may have been updated after the patient was seen, as this information can be updated by other users. Medical History Kidney stone Asthma Surgical History History of removal of cyst History of tympanostomy tube placement History of tonsillectomy Family History (Updated 09/26/24 @ 11:04 by ROBYN Buck) Other Cancer Social History Smoking Status: Unknown if ever smoked alcohol intake: never current occupational status: employed Travel in the last 8 weeks?: None Have you lived/traveled outside US in past 30 days?: No Contact w/someone who lives/traveled outside US past 30 days?: No Exposure to someone with infectious disease in past 14 days?: No Do you have a fever (greater than 100.4 F or 38 C)?: No Have you tested positive for COVID-19?: No Exposed to someone with COVID-19 in past 14 days?: No Do you have a sore throat?: No Do you have a cough?: No Do you have any weakness?: No Do you have any diarrhea?: No Are you experiencing any unusual bleeding?: No Do you have any muscle aches/pain?: No Do you have any abdominal pain?: No Are you experiencing loss of taste or smell?: No Other Medical History Have you received the Flu Vaccine for this season: No Have you received the Pneumonia Vaccine: No ROS Obtained: Yes All systems reviewed & no additional complaints except as documented Physical Exam General General appearance: alert and in no apparent distress ENT ENT exam: Present other (Bilateral tympanic membranes are pink without any erythema no external auditory canal inflammation there is some very mild middle ear effusions bilaterally no opacities noted) Respiratory Respiratory exam: Present normal lung sounds bilaterally Cardiovascular Cardiovascular exam: Present regular rate Neurological Exam Neurological exam: Present alert and oriented X3 Medical Decision Making Medical Records Screening: Per USPSTF and CDC recommendations, given the prevalence of disease in our region, it is our hospital?s policy to screen for HIV and viral Hepatitis for all patients aged 18 and over and those with ongoing risk factors. Marquis Inquiry Pt receiving controlled substance: No Vital Signs: 03/15/25 21:23 03/15/25 21:49 Temperature 98.5 F Temperature Source Oral Pulse Rate 78 Pulse Rate [Left Radial] 84 Respiratory Rate 18 16 Blood Pressure 136/83 Blood Pressure [Right Arm] 160/93 H Blood Pressure Mean [Right Arm] 115 Blood Pressure Source [Right Arm] Automatic Cuff Blood Pressure Position [Right Arm] Sitting 02 Sat by Pulse Oximetry 97 94 L Oxygen Delivery Method Room Air Room Air Lab Data Lab results reviewed: Yes I reviewed the patient's lab results. Lab Results 03/15/25 21:30: Urine Color Yellow, Urine Appearance Clear, Urine pH 6.5, Ur Specific [place] 1.020, Urine Protein Negative, Urine Glucose (UA) Negative, Urine Ketones Trace, Urine Blood Negative, Urine Nitrate Negative, Urine Bilirubin Negative, Urine Urobilinogen 0.2, Ur Leukocyte Esterase Negative, Urine RBC None, Urine WBC 3-5, Ur Squamous Epith Cells 3-5, Urine Bacteria 1+, Urine HCG, Qual Negative Orders (Tests/Meds): ORDERS Category Date Time Status UA [Urinalysis and Microscopic] Stat Lab 03/15/25 21:30 Completed Urine , HCG Qual. Stat Lab 03/15/25 21:30 Completed Medical Decision Narrative: Patient with above history and physical essentially normal bilateral ear exams with some very mild middle ear effusions which may be some eustachian tube dysfunction associated with recent congestion. She has been advised to take decongestant. No evidence of any obvious infection requiring antibiotics right now. Regarding her dysuria her urinalysis was unremarkable this is not consistent with a urinary tract infection therefore antibiotics were also not prescribed for that. She was reassured advised to follow-up with primary care doctor and return to the emergency room with any worsening of her symptoms. Critical Care Critical Care Time Critical Care Time: No
[2025-03-15 22:13] VITALS: BP 122/78; PULSE 77; RESP 16; TEMP 37.1; O2SAT 96
== END 2025-03-15 22:14 | disposition home or self-care (01) ==
PROVIDERS: Emergency Provider Student in an Organized Health Care Education/Training Program; PCP Nurse Practitioner
DX: H92.03 Otalgia, bilateral (principal); H69.93 Unspecified Eustachian tube disorder, bilateral; R30.0 Dysuria
CPT/HCPCS: 81001; 81025; 99283

== ENCOUNTER 2025-04-13 08:10 | Outpatient (CLI) | payer OTHER, SELFPAY | END 2025-04-13 23:59 | LOC: LAB.DROPOF 04-16 08:12 | PROVIDERS: PCP Nurse Practitioner; Visit Provider Nurse Practitioner Family | DX: M54.9 Dorsalgia, unspecified (principal) | CPT/HCPCS: 87086 ==

== ENCOUNTER 2025-06-29 10:34 | Outpatient (CLI) | payer OTHER, SELFPAY ==
[2025-06-29 20:32] LABS: Coronavirus 19, PCR Not Detected (NotDetected); Influenza A, PCR Not Detected (NotDetected); Influenza B, PCR Not Detected (NotDetected)
== END 2025-06-29 23:59 ==
LOC: LAB.DROPOF 07-01 10:34
PROVIDERS: PCP Nurse Practitioner; Visit Provider Student in an Organized Health Care Education/Training Program
DX: J06.9 Acute upper respiratory infection, unspecified (principal)
CPT/HCPCS: 87631